=== PATIENT | female | born 1985 | race Caucasian/White ===

== ENCOUNTER 2017-02-06 08:22 | Day surgery (SDC) | payer BC ==
[2017-02-05 08:40] VITALS: BMI 32.9
--- NOTE | 2017-02-06 06:28 | HP ---
DATE OF ADMISSION: Chief complaint is perforation of the left ear. HISTORY OF PRESENT ILLNESS: This patient is a 31-year-old female who was recently seen in my office complaining of having decreased hearing in her left ear. She has previously undergone insertion of a 5 mm Kartush patch last year. At that time she was seen in the office the left ear was draining and therefore the patient was placed on antibiotic eardrops for a period of approximately 2 weeks. Upon returning it was noted that the Kartush patch had extruded and there was once again a central perforation in the left tympanic membrane. It was recommended the patient undergo a reinsertion of a larger Kartush patch to the left tympanic membrane perforation. Past medical history reveals the patient has no known allergies to medications. Her only current medication is Paxil. Previous surgeries include insertion of a left Kartush patch to a left tympanic membrane perforation, tympanoplasty x2 by Dr. Francois and Dr. Adrian, correction of a right club foot, cholecystectomy, appendectomy, mastoidectomy, insertion of a ventilation tube in the right ear x2, pyeloplasty. Review of systems is completely unremarkable. PHYSICAL EXAMINATION: This patient is a pleasant 31-year-old female who is alert and cooperative. HEENT EXAMINATION: Patient is normocephalic. Tympanic membrane of the right ear is unremarkable. Examination of left ear reveals that the left tympanic membrane has a central perforation encompassing approximately 10% of the left tympanic membrane. The middle ear space is dry and free of any cholesteatoma or infection. Pupils equal, round, reactive light and accommodation. Extraocular movements are within normal limits. Intranasal examination reveals moderate septal deviation with compensatory hypertrophy of the inferior turbinates and a moderate amount of mucus on the mucous membranes and draining down the posterior pharynx. Examination of the oropharynx, cranial nerves 2 through 12 and the remainder of the head and neck exam are all within normal limits. CHEST/CARDIOVASCULAR: Both lung muhammad are clear to percussion and auscultation. The patient is in regular sinus rhythm. S1 and S2 are present without evidence of any murmurs, S3s or S4s. Peripheral pulses are about bilaterally symmetrical. ABDOMEN: There is no evidence of any masses, megaly or tenderness. The abdomen is soft. Skin is unremarkable. Musculoskeletal and neurological are within normal limits. PELVIC AND RECTAL EXAM: The pelvic rectal exam is deferred at this time because the patient has this done on a regular basis at her family physician's office. The remainder of physical exam is unremarkable. IMPRESSION: Perforation of the left tympanic membrane. PLAN: The patient is scheduled to undergo an insertion of a 7 mm Kartush patch to a perforation of the left tympanic membrane under IV sedation with MAC or general anesthesia depending upon the anesthesia department's preference. ATTENTION RNS IN THE PRESURGICAL AREA: I have not ordered any presurgical medications or presurgical prophylactic antibiotics for this patient. If any presurgical prophylactic antibiotics are sent to the presurgical area for this patient they should be returned to the pharmacy department and the patient's account should be credited appropriately. I have explained the operation/procedure to the patient, including the risks, benefits, side effects, alternative therapies (including not receiving the proposed treatment or service), the likelihood of the patient achieving his/her goals, and potential recuperation problems for the procedure/sedation/analgesia, as well as any blood products, if indicated. I also explained to the patient the risks, benefits, and side effects of the alternatives, as well as the risks related to not receiving the proposed procedure, care treatment or services.
[~2017-02-06 08:22] MED LIST: DEXAMETHASONE SOD PHOSPHATE 10 MG/ML 1 ML VIAL IV ONE; HYDROmorphone 1 MG/ML 1 ML SYRINGE IVP PRN; MIDAZOLAM 2 MG/2 ML VIAL IV PRN; NALOXONE 0.4 MG/ML 1 ML VIAL IV PRN; ONDANSETRON 4 MG/2 ML VIAL IVP ONE; Pre Op ABX Message 1 EACH MISC MISCELLANE ONE; SCOPOLAMINE 1.5MG/72HR PATCH TRANSDERM ONE
[2017-02-06] MEDS: LACTATED RINGERS 1,000 ML IV SCH ×2 (08:46→10:19)
[2017-02-06] MEDS ORDERED: LIDOCAINE 1% 20 ML VIAL (10MG/ML) FOR IV START INTRADERMA ONE (08:46)
[2017-02-06] MEDS ORDERED: ACETAMINOPHEN IV (For NPO) 1,000 MG in EMPTY BAG 1 BAG IVPB ONE (09:45)
[2017-02-06] MEDS ORDERED: PENICILLIN G POTASSIUM 2,000,000 UNIT in DEXTROSE 5% IN WATER 100 ML IVPB ONE ×2 (09:45)
[2017-02-06] MEDS ORDERED: PROPOFOL 10 MG/ML 20 ML VIAL IV ONE (10:19)
[2017-02-06] MEDS ORDERED: fentaNYL (PF) 50 MCG/ML 2 ML AMP ONE (10:19)
[2017-02-06] MEDS ORDERED: LIDOCAINE 1% INJ 10MG/ML (20 ML MDV) ONE (10:19)
[2017-02-06] MEDS ORDERED: MIDAZOLAM 2 MG/2 ML VIAL ONE (10:19)
[2017-02-06] MEDS ORDERED: OFLOXACIN 0.3% OTIC DROPS 5 ML BTL LEFT EAR ONE (10:37)
[2017-02-06 10:58] VITALS: RESP 16
[2017-02-06] MEDS ORDERED: ONDANSETRON 4 MG/2 ML VIAL IVP PRN (11:15)
[2017-02-06] MEDS ORDERED: HYDROmorphone PCA 5 MG/25 ML SYRINGE IV PRN (11:15)
[2017-02-06 11:40] VITALS: BP 103/68; PULSE 73
[2017-02-06] MEDS ORDERED: .ACETAMINOPHEN IV (PEDS) 1,000 MG in EMPTY BAG 1 BAG IVPB SCH (16:00)
--- NOTE | 2017-02-08 16:02 | OP ---
DATE OF SERVICE: 02/06/2017 SURGEON: RUPINDER RAO MD PROCUREMENT REPRESENTATIVE: PREOPERATIVE DIAGNOSIS: Perforation of the left tympanic membrane. POSTOPERATIVE DIAGNOSIS: Perforation of the left tympanic membrane. OPERATION: Insertion of a 7 mm Kartush patch to a perforation of the left tympanic membrane. ANESTHESIA: IV sedation with M.A.C. ESTIMATED BLOOD LOSS: SPECIMENS REMOVED: COMPLICATIONS: None. OPERATIVE FINDINGS: OPERATIVE PROCEDURE: The patient was placed on the operating table in the supine position. After uneventful IV sedation, satisfactory sedation was obtained. Next, the patient's left ear was draped in the usual and customary fashion. Following the draping, the Ze[employer] operating microscope was brought into position over the patient's left ear and after insertion of a #3 aural speculum, the left external auditory canal was cleaned of all wax and debris. A previously extruded Kartush patch was removed, which was embedded in wax. Inspection revealed that the middle ear space is free of any infection or cholesteatoma. Therefore, it was elected to use a 7 mm Kartush patch which was grasped with a pair of alligator forceps in the usual fashion and was placed in the perforation in the usual manner without any difficulty. Care was taken to see that all edges of the flap of the Kartush patch were seated appropriately. At this point, the procedure was terminated. There were no intraoperative complications. The patient tolerated the procedure well and was returned to the recovery room in satisfactory condition.
== END 2017-02-06 12:06 | disposition home or self-care (01) ==
LOC: OR 08:22
PROVIDERS: ATTEND Otolaryngology
DX: H72.92 Unspecified perforation of tympanic membrane, left ear (principal); T85.898A Other specified complication of other internal prosthetic devices, implants and grafts, initial encounter; F39 Unspecified mood [affective] disorder; Z79.899 Other long term (current) drug therapy; Z91.040 Latex allergy status
CPT/HCPCS: 81025; 69610; J2250; J1100; J2405; J2001; J3010; J0131; J2704

== ENCOUNTER 2017-03-16 20:09 | Emergency (ER) | payer BC ==
[2017-03-16 20:17] VITALS: RESP 18
[2017-03-16] MEDS ORDERED: SODIUM CHLORIDE 0.9% 1,000 ML IV ONE (20:46)
[2017-03-16] MEDS ORDERED: ACETAMINOPHEN TAB 500 MG TAB PO STA (20:46)
--- NOTE | 2017-03-16 21:06 | ED ---
General Adult HPI - General Chief complaint: Urogenital Stated complaint: Back kidney pain Time Seen by Provider: 03/16/17 20:41 Source: patient, family, RN notes reviewed Mode of arrival: ambulatory Limitations: no limitations - History of Present Illness Initial comments: This is a 31-year-old female presents emergency Department with chief complaint of bilateral flank pain greater on the left, dysuria and fever. Patient states she does not feel well. Patient states that she had urinary tract infections when she was younger and she had a pyeloplasty when she was [id number] with stent placement. Patient states she is currently followed by Dr. Geiger 's. Patient denies any nausea vomiting diarrhea constipation. Denies any chest pain or shortness breath. Patient denies any chance . - Related Data Home Medications Medication Instructions Recorded Confirmed PARoxetine HCL [Paxil] 20 mg PO DAILY 01/05/15 03/16/17 Ibuprofen [Motrin] 800 mg PO TID PRN 03/16/17 03/16/17 Previous Rx's Medication Instructions Recorded Ciprofloxacin HCl [Cipro] 500 mg PO Q12HR #20 tablet 03/17/17 Hydrocodone/Acetaminophen [[place] 1 tab PO Q6HR PRN #15 tab 03/17/17 5-325] Allergies Allergy/AdvReac Type Severity Reaction Status Date / Time Beef Containing Products Allergy Rash/Hives Verified 03/16/17 21:37 [Beef] latex Allergy Rash/Hives Verified 03/16/17 21:37 peanut Allergy Rash/Hives Verified 03/16/17 21:37 Review of Systems ROS Statement: Those systems with pertinent positive or pertinent negative responses have been documented in the HPI. ROS Other: All systems not noted in ROS Statement are negative. Past Medical History Past Medical History: Hearing Disorder / Deafness Additional Past Medical History / Comment(s): [place] LEFT EAR, hydronephrosis History of Any Multi-Drug Resistant Organisms: None Reported Past Surgical History: Appendectomy, Cholecystectomy, Ear Surgery, Orthopedic Surgery Additional Past Surgical History / Comment(s): BILAT FOOT SX FOR CLUB FEET. NUMEROUS EAR SURGERIES FOR TUBES AND REPAIR OF HOLES IN EARDRUM. KIDNEY STENT AT AGE 16 MONTHS Past Anesthesia/Blood Transfusion Reactions: No Reported Reaction Past Psychological History: Depression Smoking Status: Never smoker Past Alcohol Use History: None Reported Past Drug Use History: None Reported - Past Family History Mother Family Medical History: No Reported History General Exam Limitations: no limitations General appearance: alert, in no apparent distress Head exam: Present: atraumatic, normocephalic, normal inspection Respiratory exam: Present: normal lung sounds bilaterally. Absent: respiratory distress, wheezes, rales, rhonchi, stridor Cardiovascular Exam: Present: regular rate, normal rhythm, normal heart sounds. Absent: systolic murmur, diastolic murmur, rubs, gallop, clicks GI/Abdominal exam: Present: soft, tenderness ([id number] suprapubic tenderness), normal bowel sounds. Absent: distended, guarding, rebound, rigid Back exam: Present: CVA tenderness (R) (Minimal), CVA tenderness (L) Neurological exam: Present: alert, oriented X3, CN II-XII intact Skin exam: Present: warm, dry, intact, normal color. Absent: rash Course Vital Signs 03/16/17 03/16/17 03/16/17 20:13 22:33 23:21 Temperature 100 F H 99.1 F Pulse Rate 75 78 76 Respiratory 18 18 18 Rate Blood Pressure 136/79 116/71 110/60 O2 Sat by Pulse 98 97 97 Oximetry Medical Decision Making - Medical Decision Making 31-year-old female presents emergency Department with chief complaint of dysuria or flank pain. Patient has a minimally elevated white count. Patient was given pain medication does feel better after this. Patient was given IV dose of Rocephin and will be discharged on ciprofloxacin. Patient will follow- up with primary care physician tomorrow return parameters were discussed.patient evaluated by Dr Marcelo - Lab Data Result diagrams: 03/16/17 21:13 03/16/17 21:13 Lab Results 03/16/17 03/16/17 03/16/17 Range/Units 21:13 21:13 21:13 WBC 13.0 H (3.8-10.6) k/uL RBC 4.93 (3.80-5.40) m/uL Hgb 14.8 (11.4-16.0) gm/dL Hct 44.2 (34.0-46.0) % MCV 89.7 (80.0-100.0) fL MCH 30.0 (25.0-35.0) pg MCHC 33.4 (31.0-37.0) g/dL RDW 13.2 (11.5-15.5) % Plt Count 263 (150-450) k/uL Neutrophils % 78 % Lymphocytes % 14 % Monocytes % 5 % Eosinophils % 1 % Basophils % 1 % Neutrophils # 10.2 H (1.3-7.7) k/uL Lymphocytes # 1.8 (1.0-4.8) k/uL Monocytes # 0.7 (0-1.0) k/uL Eosinophils # 0.2 (0-0.7) k/uL Basophils # 0.1 (0-0.2) k/uL Sodium 141 (137-145) mmol/L Potassium 4.1 (3.5-5.1) mmol/L Chloride 107 (98-107) mmol/L Carbon Dioxide 25 (22-30) mmol/L Anion Gap 9 mmol/L BUN 13 (7-17) mg/dL Creatinine 0.89 (0.52-1.04) mg/dL Est GFR (MDRD) Af Amer >60 (>60 ml/min/1.73 sqM) Est GFR (MDRD) Non-Af >60 (>60 ml/min/1.73 sqM) Glucose 103 H (74-99) mg/dL Plasma Lactic Acid Charles (0.7-2.0) mmol/L Calcium 9.8 (8.4-10.2) mg/dL Total Bilirubin 0.5 (0.2-1.3) mg/dL AST 22 (14-36) U/L ALT 23 (9-52) U/L Alkaline Phosphatase 64 (38-126) U/L Total Protein 7.2 (6.3-8.2) g/dL Albumin 4.2 (3.5-5.0) g/dL Lipase 100 (23-300) U/L Urine Color Urine Appearance (Clear) Urine pH (5.0-8.0) Ur Specific [place] (1.001-1.035) Urine Protein (Negative) Urine Glucose (UA) (Negative) Urine Ketones (Negative) Urine Blood (Negative) Urine Nitrite (Negative) Urine Bilirubin (Negative) Urine Urobilinogen (<2.0) mg/dL Ur Leukocyte Esterase (Negative) Urine RBC (0-5) /hpf Urine WBC (0-5) /hpf Ur Squamous Epith Cells (0-4) /hpf Urine Bacteria (None) /hpf Urine HCG, Qual Not Detected (Not Detectd) 03/16/17 03/16/17 Range/Units 21:13 21:13 WBC (3.8-10.6) k/uL RBC (3.80-5.40) m/uL Hgb (11.4-16.0) gm/dL Hct (34.0-46.0) % MCV (80.0-100.0) fL MCH (25.0-35.0) pg MCHC (31.0-37.0) g/dL RDW (11.5-15.5) % Plt Count (150-450) k/uL Neutrophils % % Lymphocytes % % Monocytes % % Eosinophils % % Basophils % % Neutrophils # (1.3-7.7) k/uL Lymphocytes # (1.0-4.8) k/uL Monocytes # (0-1.0) k/uL Eosinophils # (0-0.7) k/uL Basophils # (0-0.2) k/uL Sodium (137-145) mmol/L Potassium (3.5-5.1) mmol/L Chloride (98-107) mmol/L Carbon Dioxide (22-30) mmol/L Anion Gap mmol/L BUN (7-17) mg/dL Creatinine (0.52-1.04) mg/dL Est GFR (MDRD) Af Amer (>60 ml/min/1.73 sqM) Est GFR (MDRD) Non-Af (>60 ml/min/1.73 sqM) Glucose (74-99) mg/dL Plasma Lactic Acid Charles 1.0 (0.7-2.0) mmol/L Calcium (8.4-10.2) mg/dL Total Bilirubin (0.2-1.3) mg/dL AST (14-36) U/L ALT (9-52) U/L Alkaline Phosphatase (38-126) U/L Total Protein (6.3-8.2) g/dL Albumin (3.5-5.0) g/dL Lipase (23-300) U/L Urine Color Light Yellow Urine Appearance Cloudy H (Clear) Urine pH 6.0 (5.0-8.0) Ur Specific [place] 1.009 (1.001-1.035) Urine Protein 1+ H (Negative) Urine Glucose (UA) Negative (Negative) Urine Ketones Negative (Negative) Urine Blood Moderate H (Negative) Urine Nitrite Positive H (Negative) Urine Bilirubin Negative (Negative) Urine Urobilinogen <2.0 (<2.0) mg/dL Ur Leukocyte Esterase Large H (Negative) Urine RBC 40 H (0-5) /hpf Urine WBC 108 H (0-5) /hpf Ur Squamous Epith Cells 2 (0-4) /hpf Urine Bacteria Occasional H (None) /hpf Urine HCG, Qual (Not Detectd) Disposition Clinical Impression: Urinary tract infection Disposition: HOME SELF-CARE Condition: Stable Instructions: Urinary Tract Infection in Women (ED) Additional Instructions: Please return to the Emergency Department if symptoms worsen or any other concerns. Prescriptions: Ciprofloxacin HCl [Cipro] 500 mg PO Q12HR #20 tablet Hydrocodone/Acetaminophen [[place] 5-325] 1 tab PO Q6HR PRN #15 tab PRN Reason: Pain Referrals: Davon Sullivan Jr, [Primary Care Provider] - 1-2 days Time of Disposition: 00:11
[2017-03-16 21:32] LABS: ALT 23 U/L (9-52); AST 22 U/L (14-36); Alkaline Phosphatase 64 U/L (38-126); Anion Gap 9 mmol/L; Blood Urea Nitrogen 13 mg/dL (7-17); Calcium 9.8 mg/dL (8.4-10.2); Carbon Dioxide 25 mmol/L (22-30); Chloride 107 mmol/L (98-107); Glucose 103 mg/dL (74-99); Non-African American GFR(MDRD) >60 (>60 ml/min/1.73 sqM); Potassium 4.1 mmol/L (3.5-5.1); Sodium 141 mmol/L (137-145); Total Bilirubin 0.5 mg/dL (0.2-1.3); Total Protein 7.2 g/dL (6.3-8.2)
[2017-03-16 21:34] LABS: Basophils # (A) 0.1 k/uL (0-0.2); Basophils % (A) 1 %; CH 30.4; Eosinophils # (A) 0.2 k/uL (0-0.7); Eosinophils % (A) 1 %; HCT 44.2 % (34.0-46.0); HDW 2.33; HGB 14.8 gm/dL (11.4-16.0); Luc # (Auto) 0.17; Luc % (Auto) 1; Lymphocytes # (A) 1.8 k/uL (1.0-4.8); Lymphocytes % (A) 14 %; MCHC 33.4 g/dL (31.0-37.0); MCV 89.7 fL (80.0-100.0); Mean Platelet Volume 7.2; Monocytes # (A) 0.7 k/uL (0-1.0); Monocytes % (A) 5 %; Neutrophils # (A) 10.2 k/uL (1.3-7.7); Neutrophils % (A) 78 %; RBC 4.93 m/uL (3.80-5.40); RDW 13.2 % (11.5-15.5); WBC (Perox) 12.17
[2017-03-16 21:38] LABS: Appearance,Urine Cloudy (Clear); Bacteria,Urine Occasional /hpf; Bilirubin,Urine Negative (Negative); Glucose,Urine (UA) Negative (Negative); Ketones,Urine Negative (Negative); Leukocyte Esterase,Urine Large (Negative); Nitrite,Urine Positive (Negative); Particle Count 56633; Protein,Urine 1+ (Negative); RBC,Urine 40 /hpf (0-5); Specific Gravity,Urine 1.009 (1.001-1.035); Squamous Epithelial Cell,Urine 2 /hpf (0-4); UA Billing (MACRO vs. MICRO) MICRO; Urobilinogen,Urine <2.0 mg/dL (<2.0); WBC,Urine 108 /hpf (0-5)
[2017-03-16] MEDS ORDERED: ONDANSETRON 4 MG/2 ML VIAL IVP STA (21:55)
[2017-03-16] MEDS ORDERED: MORPHINE SULFATE 4 MG/ML SYRINGE IVP STA (21:55)
[2017-03-16] MEDS ORDERED: HYDROmorphone 1 MG/ML 1 ML SYRINGE IVP STA (23:13)
[2017-03-17] MEDS ORDERED: ACET/COD 300 MG/30 MG STARTER PACK 6 TAB BTL PO STA (00:09)
[2017-03-17 00:30] VITALS: BP 129/79; PULSE 80; TEMP 97
== END 2017-03-17 00:30 | disposition home or self-care (01) ==
LOC: EC 20:09
DX: N39.0 Urinary tract infection, site not specified (principal); F32.9 Major depressive disorder, single episode, unspecified; Z79.899 Other long term (current) drug therapy; Z91.018 Allergy to other foods; Z91.040 Latex allergy status; Z91.010 Allergy to peanuts; Z90.49 Acquired absence of other specified parts of digestive tract; Z98.890 Other specified postprocedural states
CPT/HCPCS: 36415; 80053; 83605; 83690; 85025; 81001; 81025; 87040; 87086; 99283; 96365; 96366; 96375 ×3; 96361; J2270; J2405; J0696; J1170; 87077; 87186

== ENCOUNTER 2018-04-16 21:31 | Emergency (ER) | payer BC ==
[2018-04-16 21:39] VITALS: BP 137/84; PULSE 85; RESP 16; TEMP 98.4
--- NOTE | 2018-04-16 22:35 | ED ---
ENT HPI - General Chief complaint: ENT Stated complaint: Ear pain Time Seen by Provider: 04/16/18 21:52 Source: patient Mode of arrival: ambulatory Limitations: no limitations - History of Present Illness Initial comments: This is a 32-year-old female with extensive history of ear infections and chronic perforation with effusion presents today for acute left ear pain and discharge on chronic 3 days. Patient states that she has always had chronic bilateral ear pain and has had multiple ear surgeries including myringotomy tubes bilaterally and multiple patches of a chronic left ear effusion. She last seen her ears nose and throat doctor Yaniv February 2017. The was more recently seen by Dr. Sullivan her primary care provider in December 2017 for a double ear infection, she was prescribed Augmentin for 10 days and completed a course of antibiotics. She received another course of Augmentin at the end of December due to recurring symptoms however she lost it. Last week she found her Augmentin prescription from the end of December and began taking it again, she has been on Augmentin for the past week. Starting Thursday patient began experiencing ear pain that increased when clenching her jaw. She also noticed green discharge from her left ear. She states that she chronically experiences green discharge from left ear this was darker in color and more copious. The pain continued to increase and tonight she described her left ear pain as unbearable, she took 2 extra strength Tylenol PM which he stated helped a lot, she then presented to the emergency department. Vital signs stable upon arrival. Patient denies change in baseline hearing, pain behind the ear, fever , chills, or history of DM. Patient denies any recent fever, chills, shortness of breath, chest pain, back pain, abdominal pain, nausea or vomiting, numbness or tingling, dysuria or hematuria, constipation or diarrhea, headaches or visual changes, or any other complaints. - Related Data Home Medications Medication Instructions Recorded Confirmed PARoxetine HCL [Paxil] 20 mg PO DAILY 01/05/15 03/16/17 Ibuprofen [Motrin] 800 mg PO TID PRN 03/16/17 03/16/17 Previous Rx's Medication Instructions Recorded Ciprofloxacin HCl [Cipro] 500 mg PO Q12HR #20 tablet 03/17/17 Hydrocodone/Acetaminophen [[place] 1 tab PO Q6HR PRN #15 tab 03/17/17 5-325] Ibuprofen 800 mg PO Q6H 7 Days #28 tablet 04/16/18 Levofloxacin [Levaquin] 750 mg PO DAILY 7 Days #7 tab 04/16/18 Ofloxacin 0.3% Otic Soln [Floxin 5 drops BOTH EARS BID 7 Days #1 04/16/18 0.3% Otic Soln] bottle Allergies Allergy/AdvReac Type Severity Reaction Status Date / Time Beef Containing Products Allergy Rash/Hives Verified 04/16/18 21:37 [Beef] latex Allergy Rash/Hives Verified 04/16/18 21:37 peanut Allergy Rash/Hives Verified 04/16/18 21:37 Review of Systems ROS Statement: Those systems with pertinent positive or pertinent negative responses have been documented in the HPI. ROS Other: All systems not noted in ROS Statement are negative. Constitutional: Denies: fever, chills, night sweats ENT: Denies: dental pain Respiratory: Denies: dyspnea Cardiovascular: Denies: chest pain Gastrointestinal: Denies: abdominal pain Past Medical History Past Medical History: Hearing Disorder / Deafness Additional Past Medical History / Comment(s): [place] LEFT EAR, hydronephrosis History of Any Multi-Drug Resistant Organisms: None Reported Past Surgical History: Appendectomy, Cholecystectomy, Ear Surgery, Orthopedic Surgery Additional Past Surgical History / Comment(s): BILAT FOOT SX FOR CLUB FEET. NUMEROUS EAR SURGERIES FOR TUBES AND REPAIR OF HOLES IN EARDRUM. KIDNEY STENT AT AGE 16 MONTHS Past Anesthesia/Blood Transfusion Reactions: No Reported Reaction Past Psychological History: Depression Smoking Status: Never smoker Past Alcohol Use History: None Reported Past Drug Use History: None Reported - Past Family History Mother Family Medical History: No Reported History General Exam - General Exam Comments Initial Comments: General: The patient is awake and alert, in no distress, and does not appear acutely ill. Eye: Pupils are equal, round and reactive to light, extra-ocular movements are intact. No nystagmus. There is normal conjunctiva bilaterally. No signs of icterus. Ears, nose, mouth and throat: There are moist mucous membranes and no oral lesions. On examination of the external ear there was obvious erythema and mild swelling. There there was pain to palpation of the tragus, pulling the auricle of the left ear. There was no tendernes to palpation of the Mastoid bone. Upon examination of the external ear canal there was also erythema, edema and purulent yellow-green discharge. The TM membrane was not visualized secondary to discharge and edema. Greater hearing deficit to finger rub in left ear than right- pt has baseline hearing deficits. Neck: The neck is supple, there is no tenderness or JVD. Cardiovascular: There is a regular rate and rhythm. No murmur, rub or gallop is appreciated. Respiratory: Lungs are clear to auscultation, respirations are non-labored, breath sounds are equal. No wheezes, stridor, rales, or rhonchi. Gastrointestinal: [Soft, non-distended, non-tender abdomen without masses or organomegaly noted. There is no rebound or guarding present. No CVA tenderness. Bowel sounds are unremarkable.] Musculoskeletal: Normal ROM, no tenderness. Strength 5/5. Sensation intact. Pulses equal bilaterally 2+. Neurological: A&O x 3. CN II-XII intact, There are no obvious motor or sensory deficits. Coordination appears grossly intact. Speech is normal. Skin: Skin is warm and dry and no rashes or lesions are noted. Psychiatric: Cooperative, appropriate mood & affect, normal judgment. Limitations: no limitations Eye exam: Present: PERRL, EOMI Course Vital Signs 04/16/18 21:37 Temperature 98.4 F Pulse Rate 85 Respiratory 16 Rate Blood Pressure 137/84 O2 Sat by Pulse 99 Oximetry Medical Decision Making - Medical Decision Making This is a 32-year-old female with extensive history of ear infections and chronic perforation with effusion presents today for acute left ear pain and discharge on chronic 3 days. Patient states that she has always had chronic bilateral ear pain and has had multiple ear surgeries including myringotomy tubes bilaterally and multiple patches of a chronic left ear effusion. She last seen her ears nose and throat doctor Yaniv February 2017. The was more recently seen by Dr. Sullivan her primary care provider in December 2017 for a double ear infection, she was prescribed Augmentin for 10 days and completed a course of antibiotics. She received another course of Augmentin at the end of December due to recurring symptoms however she lost it. Last week she found her Augmentin prescription from the end of December and began taking it again, she has been on Augmentin for the past week. Starting Thursday patient began experiencing ear pain that increased when clenching her jaw. She also noticed green discharge from her left ear. She states that she chronically experiences green discharge from left ear this was darker in color and more copious. The pain continued to increase and tonight she described her left ear pain as unbearable, she took 2 extra strength Tylenol PM which he stated helped a lot, she then presented to the emergency department. Vital signs stable upon arrival. Patient denies change in baseline hearing, pain behind the ear, fever , chills, or history of DM. Upon physical examination of the external ear there was obvious erythema and mild swelling. There there was pain to palpation of the tragus, pulling the auricle of the left ear. There was no tendernes to palpation of the Mastoid bone. Upon examination of the external ear canal there was also erythema, edema and purulent yellow-green discharge. The TM membrane was not visualized secondary to discharge and edema. Greater hearing deficit to finger rub in left ear than right- pt has baseline hearing deficits. Dr. Geronimo had a face to face with patient and planned was discussed together. Due to patients recent abx use of Augmentin and physical exam findings we felt Levoquin PO 750 mg once daily and ofloacin otic drops for 7 days were appropriate treatment at this time, along with ENT folllow-up within the next two day with Dr. Berg the patients ENT physician. Pt was discharged in stable condition and told to return to the emergency department if symptoms worsen. Disposition Clinical Impression: Chronic otitis media of left ear, Otitis externa of left ear Disposition: HOME SELF-CARE Condition: Good Instructions: Otitis Externa (ED), Otitis Media (ED) Additional Instructions: Please use medication as discussed. Please follow-up with your ENT in the next 2 days.. Please return to emergency room if the symptoms increase or worsen or for any other concerns. Prescriptions: Ibuprofen 800 mg PO Q6H 7 Days #28 tablet Levofloxacin [Levaquin] 750 mg PO DAILY 7 Days #7 tab Ofloxacin 0.3% Otic Soln [Floxin 0.3% Otic Soln] 5 drops BOTH EARS BID 7 Days # 1 bottle Is patient prescribed a controlled substance at d/c from ED?: No Referrals: Arthur Hood MD [Primary Care Provider] - 1-2 days Time of Disposition: 22:57
== END 2018-04-16 23:06 | disposition home or self-care (01) ==
LOC: EC 21:31 → SUPCPDRO 21:31 → EC 23:06
DX: H60.92 Unspecified otitis externa, left ear (principal); H66.92 Otitis media, unspecified, left ear; G89.29 Other chronic pain; H92.01 Otalgia, right ear; H91.92 Unspecified hearing loss, left ear; F32.9 Major depressive disorder, single episode, unspecified; Z79.899 Other long term (current) drug therapy; Z91.010 Allergy to peanuts; Z91.018 Allergy to other foods; Z91.040 Latex allergy status; Z96.22 Myringotomy tube(s) status; Z98.890 Other specified postprocedural states
CPT/HCPCS: 99282

== ENCOUNTER 2018-07-01 05:11 | Emergency (ER) | payer BC ==
[2018-07-01 05:17] VITALS: BP 116/68; PULSE 82; RESP 17; TEMP 98
[2018-07-01 05:40] LABS: Appearance,Urine Turbid (Clear); Bacteria,Urine Rare /hpf; Bilirubin,Urine Negative (Negative); Blood,Urine Large (Negative); Color,Urine Yellow; Glucose,Urine (UA) Negative (Negative); Ketones,Urine Negative (Negative); Leukocyte Esterase,Urine Large (Negative); Mucus,Urine Few /hpf; Nitrite,Urine Positive (Negative); Protein,Urine 3+ (Negative); RBC,Urine >182 /hpf (0-5); Specific Gravity,Urine 1.015 (1.001-1.035); Squamous Epithelial Cell,Urine 7 /hpf (0-4); Urobilinogen,Urine <2.0 mg/dL (<2.0); WBC,Urine >182 /hpf (0-5)
[2018-07-01] MEDS ORDERED: LEVOFLOXACIN 750 MG TAB PO STA (05:43)
--- NOTE | 2018-07-01 05:45 | ED ---
Female Urogenital HPI - General Chief complaint: Urogenital Stated complaint: kidney pain Time Seen by Provider: 07/01/18 05:19 Source: patient Mode of arrival: ambulatory Limitations: no limitations - History of Present Illness Initial comments: 's patient is a 32-year-old woman who presents to be evaluated because she believes she has developed urinary tract infection. Patient states that she has had 2-3 days of dysuria and frequency. Over the course of the morning she has developed some low back pain. She states the symptoms are identical to symptoms she had with previous urinary tract infection. She has not noted fever or chills. No chest pain, palpitations, or dyspnea. MD Complaint: dysuria, pelvic pain -: days(s) Location: suprapubic Radiation: non-radiating Severity: moderate Quality: cramping, dull Consistency: constant Improves with: none Worsens with: urination Last Menstrual Period: 06/11/18 Patient : No Associated Symptoms: denies other symptoms - Related Data Home Medications Medication Instructions Recorded Confirmed PARoxetine HCL [Paxil] 20 mg PO DAILY 01/05/15 03/16/17 Ibuprofen [Motrin] 800 mg PO TID PRN 03/16/17 03/16/17 Previous Rx's Medication Instructions Recorded Ciprofloxacin HCl [Cipro] 500 mg PO Q12HR #20 tablet 03/17/17 Hydrocodone/Acetaminophen [[place] 1 tab PO Q6HR PRN #15 tab 03/17/17 5-325] Ibuprofen 800 mg PO Q6H 7 Days #28 tablet 04/16/18 Levofloxacin [Levaquin] 750 mg PO DAILY 7 Days #7 tab 04/16/18 Ofloxacin 0.3% Otic Soln [Floxin 5 drops BOTH EARS BID 7 Days #1 04/16/18 0.3% Otic Soln] bottle Ciprofloxacin HCl [Cipro] 500 mg PO Q12HR #14 tablet 07/01/18 Phenazopyridine [Pyridium] 100 mg PO TID #6 tablet 07/01/18 Allergies Allergy/AdvReac Type Severity Reaction Status Date / Time Beef Containing Products Allergy Rash/Hives Verified 07/01/18 05:17 [Beef] latex Allergy Rash/Hives Verified 07/01/18 05:17 peanut Allergy Rash/Hives Verified 07/01/18 05:17 Review of Systems ROS Statement: Those systems with pertinent positive or pertinent negative responses have been documented in the HPI. ROS Other: All systems not noted in ROS Statement are negative. Constitutional: Denies: fever, chills, weakness Respiratory: Denies: cough, dyspnea Cardiovascular: Denies: chest pain, palpitations, edema Gastrointestinal: Reports: abdominal pain. Denies: nausea, vomiting, diarrhea Genitourinary: Reports: dysuria, frequency. Denies: hematuria, discharge, abnormal menses Skin: Denies: rash Neurological: Denies: headache, weakness Past Medical History Past Medical History: Hearing Disorder / Deafness Additional Past Medical History / Comment(s): [place] LEFT EAR, hydronephrosis History of Any Multi-Drug Resistant Organisms: None Reported Past Surgical History: Appendectomy, Cholecystectomy, Ear Surgery, Orthopedic Surgery Additional Past Surgical History / Comment(s): BILAT FOOT SX FOR CLUB FEET. NUMEROUS EAR SURGERIES FOR TUBES AND REPAIR OF HOLES IN EARDRUM. KIDNEY STENT AT AGE 15 MONTHS Past Anesthesia/Blood Transfusion Reactions: No Reported Reaction Past Psychological History: Depression Smoking Status: Never smoker Past Alcohol Use History: None Reported Past Drug Use History: None Reported - Past Family History Mother Family Medical History: No Reported History General Exam Limitations: no limitations General appearance: alert, in no apparent distress Head exam: Present: atraumatic, normocephalic Eye exam: Present: normal appearance. Absent: scleral icterus, conjunctival injection ENT exam: Present: normal oropharynx Neck exam: Present: normal inspection Respiratory exam: Present: normal lung sounds bilaterally. Absent: respiratory distress, wheezes, rales, rhonchi, stridor Cardiovascular Exam: Present: regular rate, normal rhythm, normal heart sounds. Absent: systolic murmur, diastolic murmur, rubs, gallop GI/Abdominal exam: Present: soft. Absent: distended, tenderness, guarding, rebound, rigid, mass, pulsatile mass Extremities exam: Present: normal inspection, normal capillary refill. Absent: pedal edema, calf tenderness Back exam: Present: normal inspection. Absent: CVA tenderness (R), CVA tenderness (L) Neurological exam: Present: alert Skin exam: Present: warm, dry, intact, normal color. Absent: rash Course Vital Signs 07/01/18 05:14 Temperature 98.0 F Pulse Rate 82 Respiratory 17 Rate Blood Pressure 116/68 O2 Sat by Pulse 98 Oximetry Medical Decision Making - Lab Data Lab Results 07/01/18 07/01/18 Range/Units 05:25 05:25 Urine Color Yellow Urine Appearance Turbid H (Clear) Urine pH 6.0 (5.0-8.0) Ur Specific [place] 1.015 (1.001-1.035) Urine Protein 3+ H (Negative) Urine Glucose (UA) Negative (Negative) Urine Ketones Negative (Negative) Urine Blood Large H (Negative) Urine Nitrite Positive H (Negative) Urine Bilirubin Negative (Negative) Urine Urobilinogen <2.0 (<2.0) mg/dL Ur Leukocyte Esterase Large H (Negative) Urine RBC >182 H (0-5) /hpf Urine WBC >182 H (0-5) /hpf Ur Squamous Epith Cells 7 H (0-4) /hpf Urine Bacteria Rare H (None) /hpf Urine Mucus Few H (None) /hpf Urine HCG, Qual Not Detected (Not Detectd) Disposition Clinical Impression: Urinary tract infection Disposition: HOME SELF-CARE Condition: Good Instructions: Urinary Tract Infection in Women (ED) Prescriptions: Ciprofloxacin HCl [Cipro] 500 mg PO Q12HR #14 tablet Phenazopyridine [Pyridium] 100 mg PO TID #6 tablet Is patient prescribed a controlled substance at d/c from ED?: No Referrals: Arthur Hood MD [Primary Care Provider] - 1-2 days
== END 2018-07-01 05:55 | disposition home or self-care (01) ==
LOC: EC 05:11
DX: N39.0 Urinary tract infection, site not specified (principal); F32.9 Major depressive disorder, single episode, unspecified; H91.92 Unspecified hearing loss, left ear; Z91.010 Allergy to peanuts; Z91.018 Allergy to other foods; Z91.040 Latex allergy status; Z79.899 Other long term (current) drug therapy; Z90.49 Acquired absence of other specified parts of digestive tract; Z96.0 Presence of urogenital implants
CPT/HCPCS: 81001; 81025; 99284

== ENCOUNTER → 2019-06-11 | Outpatient (CLI) | payer BC ==
--- NOTE | 2019-06-11 17:59 | MR ---
EXAMINATION TYPE: MR pelvis wo con DATE OF EXAM: 06/11/2019 COMPARISON: None HISTORY: Abn immunological findings Pain Standard multiplanar, multisequence MRI departmental protocol Multiplanar, multisequence images of the pelvis were acquired. FINDINGS: Uterus is anteverted. Uterus has normal size and contour. There is 1 cm cyst on the anterio r wall of the vagina. Urinary bladder distends smoothly. There is no evidence of a bladder mass. Ther e is no free fluid in the pelvis. There are follicular cysts on both ovaries. There is no evidence of a pelvic mass. There is no inguinal hernia. Bony pelvis appears intact. There is 5 mm anterior sublu xation of L5 in relation to S1. There is probably L5 spondylolysis. There are a few prominent vessels in the pelvis bilaterally. Sacroiliac joints appear intact. IMPRESSION: There are mild pelvic varices. No adnexal mass. Normal uterus. L5 minimal spondylolisthesis and probable L5 spondylolysis.
== END | disposition home or self-care (01) ==
LOC: RADMRIMAIN 12:02
PROVIDERS: ATTEND Internal Medicine Rheumatology
DX: I86.2 Pelvic varices (principal)
CPT/HCPCS: 72195

== ENCOUNTER → 2019-06-21 | Outpatient (CLI) | payer BC ==
--- NOTE | 2019-06-21 09:14 | CT ---
EXAMINATION TYPE: CT ankle LT wo con DATE OF EXAM: 06/21/2019 COMPARISON: None HISTORY: 33-year-old female Left ankle pain. TECHNIQUE: Contiguous axial scanning of the left ankle without IV contrast. Coronal and sagittal racquel nstructions performed. CT DLP: 179.4 mGycm Automated exposure control for dose reduction was used. FINDINGS: Pronounced soft tissue and low density thickening along the anterior and anteromedial aspect of the a nkle joint. Punctate 2 mm loose body in the region of the sinus Tarsi. Some scattered degenerative sp urring such as along the facets of the subtalar joint. Irregularity and surrounding fat stranding along the Achilles tendon. This somewhat narrowed caliber along the middle third portion. There is an appearance of a forefoot varus. Thickening and heterogeneity of the peroneus brevis. No acute fracture seen. Some eccentric widening along the posterior aspect of the distal tibiofibular overlap. IMPRESSION: 1. PRONOUNCED SOFT TISSUE THICKENING ALONG THE ANTERIOR AND ANTEROMEDIAL ASPECT OF THE ANKLE JOINT CO ULD REFLECT A SYNOVITIS OR EXTENSIVE SCARRING FROM PRIOR CAPSULAR OR ANTERIOR DELTOID LIGAMENT INJURI ES. 2. SOME UNDERLYING OSTEOARTHROSIS ALONG THE FACETS OF THE SUBTALAR JOINT WITH A PUNCTATE 2 MM LOOSE B MEG. 3. QUERY UNDERLYING FOREFOOT VARUS DEFORMITY. CLINICALLY CORRELATE. 4. MARKED PERONEUS BREVIS TENDINOSIS AND PROBABLY SOME INTRASUBSTANCE TEAR. 5. IRREGULARITY WITH SURROUNDING FAT STRANDING OF THE ACHILLES TENDON. NO FOCAL RETRACTED STUMP IS ID ENTIFIED. HOWEVER, THE MIDDLE THIRD SEGMENT NARROWS SLIGHTLY IN CALIBER. UNDERLYING AGE INDETERMINATE PARTIAL TEAR WITH EITHER SURROUNDING INFLAMMATION OR CHRONIC SCARRING ARE CONSIDERED. FURTHER CLINIC AL CORRELATION RECOMMENDED. 6. ECCENTRIC WIDENING OF THE POSTERIOR ASPECT OF THE DISTAL TIBIOFIBULAR OVERLAP COULD REFLECT PRIOR INJURY TO THE SYNDESMOSIS.
== END | disposition home or self-care (01) ==
LOC: RADCTMAIN 07:33
PROVIDERS: ATTEND Orthopaedic Surgery
DX: M81.8 Other osteoporosis without current pathological fracture (principal); M67.874 Other specified disorders of tendon, left ankle and foot; M79.89 Other specified soft tissue disorders; M24.08 Loose body, other site; M21.542 Acquired clubfoot, left foot

== ENCOUNTER 2019-07-24 09:34 | Emergency (ER) | payer BC ==
[2019-07-24 09:50] VITALS: BP 129/86; PULSE 95; RESP 18; TEMP 99.4
[2019-07-24] MEDS ORDERED: cefTRIAXone 1,000 MG VIAL (IM USE) IM STA (09:58)
--- NOTE | 2019-07-24 10:00 | ED ---
ENT HPI - General Chief complaint: ENT Stated complaint: vomiting/congestion Time Seen by Provider: 07/24/19 09:51 Source: patient, RN notes reviewed Mode of arrival: ambulatory Limitations: no limitations - History of Present Illness Initial comments: 33-year-old female presents emergency Department chief complaint of sinus congestion, right ear pain, sore throat. Patient states symptoms started last few days. Patient states she is scheduled for foot surgery and she is concerned about this upper respiratory infection. Patient also states that she's had recurrent issues with otitis media and multiple ear surgeries. Patient reports no fevers or chills no productive cough or chest congestion or shortness of breath. - Related Data Home Medications Medication Instructions Recorded Confirmed PARoxetine HCL [Paxil] 20 mg PO DAILY 01/05/15 03/16/17 Ibuprofen [Motrin] 800 mg PO TID PRN 03/16/17 03/16/17 Previous Rx's Medication Instructions Recorded Ciprofloxacin HCl [Cipro] 500 mg PO Q12HR #20 tablet 03/17/17 Hydrocodone/Acetaminophen [[place] 1 tab PO Q6HR PRN #15 tab 03/17/17 5-325] Ibuprofen 800 mg PO Q6H 7 Days #28 tablet 04/16/18 Levofloxacin [Levaquin] 750 mg PO DAILY 7 Days #7 tab 04/16/18 Ofloxacin 0.3% Otic Soln [Floxin 5 drops BOTH EARS BID 7 Days #1 04/16/18 0.3% Otic Soln] bottle Ciprofloxacin HCl [Cipro] 500 mg PO Q12HR #14 tablet 07/01/18 Phenazopyridine [Pyridium] 100 mg PO TID #6 tablet 07/01/18 Amoxicillin/Potassium Clav 1 tab PO Q12HR #20 tab 07/24/19 [Augmentin 875-125 Tablet] Allergies Allergy/AdvReac Type Severity Reaction Status Date / Time Beef Containing Products Allergy Rash/Hives Verified 07/24/19 09:49 [Beef] latex Allergy Rash/Hives Verified 07/24/19 09:49 peanut Allergy Rash/Hives Verified 07/24/19 09:49 Review of Systems ROS Statement: Those systems with pertinent positive or pertinent negative responses have been documented in the HPI. ROS Other: All systems not noted in ROS Statement are negative. Past Medical History Past Medical History: Hearing Disorder / Deafness Additional Past Medical History / Comment(s): [place] [place] LEFT EAR, hydronephrosis History of Any Multi-Drug Resistant Organisms: None Reported Past Surgical History: Appendectomy, Cholecystectomy, Ear Surgery, Orthopedic Surgery Additional Past Surgical History / Comment(s): BILAT FOOT SX FOR CLUB FEET. NUMEROUS EAR SURGERIES FOR TUBES AND REPAIR OF HOLES IN EARDRUM. KIDNEY STENT AT AGE 15 MONTHS Past Anesthesia/Blood Transfusion Reactions: No Reported Reaction Past Psychological History: Depression Smoking Status: Never smoker Past Alcohol Use History: None Reported Past Drug Use History: None Reported - Past Family History Mother Family Medical History: No Reported History General Exam Limitations: no limitations General appearance: alert, in no apparent distress Head exam: Present: atraumatic, normocephalic, normal inspection Eye exam: Present: normal appearance, PERRL, EOMI. Absent: scleral icterus, conjunctival injection, periorbital swelling ENT exam: Present: mucous membranes moist. Absent: normal oropharynx (Erythema, posterior pharynx, swelling noted), TM's normal bilaterally (Multiple areas of scarring bilaterally, erythema noted to the right) Neck exam: Present: normal inspection, full ROM. Absent: tenderness, meningismus, lymphadenopathy Respiratory exam: Present: normal lung sounds bilaterally. Absent: respiratory distress, wheezes, rales, rhonchi, stridor Cardiovascular Exam: Present: regular rate, normal rhythm, normal heart sounds. Absent: systolic murmur, diastolic murmur, rubs, gallop, clicks Neurological exam: Present: alert Skin exam: Present: warm, dry, intact, normal color. Absent: rash Course Vital Signs 07/24/19 09:46 Temperature 99.4 F Pulse Rate 95 Respiratory 18 Rate Blood Pressure 129/86 O2 Sat by Pulse 99 Oximetry Medical Decision Making - Medical Decision Making Patient has otitis media with acute sinusitis and acute pharyngitis. Patient was started on Augmentin. Patient discharged in stable condition. Patient advised to have recheck in 24-48 hours. Return parameters were discussed. Disposition Clinical Impression: Sore throat, Otitis media, Sinusitis Disposition: HOME SELF-CARE Condition: Stable Instructions (If sedation given, give patient instructions): Sinusitis (ED) Additional Instructions: Please return to the Emergency Department if symptoms worsen or any other concerns. Prescriptions: Amoxicillin/Potassium Clav [Augmentin 875-125 Tablet] 1 tab PO Q12HR #20 tab Is patient prescribed a controlled substance at d/c from ED?: No Referrals: Arthur Hood MD [Primary Care Provider] - 1-2 days Time of Disposition: 10:00
== END 2019-07-24 10:15 | disposition home or self-care (01) ==
LOC: EC 09:34
DX: H66.91 Otitis media, unspecified, right ear (principal); J32.9 Chronic sinusitis, unspecified; J02.9 Acute pharyngitis, unspecified; F32.9 Major depressive disorder, single episode, unspecified; Z79.899 Other long term (current) drug therapy; Z91.018 Allergy to other foods; Z91.010 Allergy to peanuts; Z91.040 Latex allergy status
CPT/HCPCS: 99283; 96372; J0696

== ENCOUNTER 2019-07-28 08:41 | Inpatient (IN) | payer BC ==
[2019-07-26 11:58] VITALS: BMI 32.0
[~2019-07-28 08:41] MED LIST changes: +HYDROmorphone 0.5 MG/0.5 ML SYRINGE IVP PRN; -HYDROmorphone 1 MG/ML 1 ML SYRINGE IVP PRN; -MIDAZOLAM 2 MG/2 ML VIAL IV PRN; -NALOXONE 0.4 MG/ML 1 ML VIAL IV PRN; -Pre Op ABX Message 1 EACH MISC MISCELLANE ONE; -SCOPOLAMINE 1.5MG/72HR PATCH TRANSDERM ONE
[2019-07-28] MEDS ORDERED: LIDOCAINE 1% 20 ML VIAL (10MG/ML) FOR IV START INTRADERMA ONE (09:20)
[2019-07-28] MEDS: LACTATED RINGERS 1,000 ML IV SCH ×4 (09:26→23:12)
[2019-07-28] MEDS ORDERED: MIDAZOLAM PF (FBP) 2 MG/2 ML VIAL IV ONE (10:27)
[2019-07-28] MEDS ORDERED: fentaNYL (PF) 50 MCG/ML 2 ML AMP IV ONE (10:27)
[2019-07-28] MEDS ORDERED: LIDOCAINE 1% INJ 10MG/ML (20 ML MDV) ONE (11:26)
[2019-07-28] MEDS ORDERED: ROPIVACAINE 5 MG/ML 30 ML VIAL ONE (11:26)
[2019-07-28] MEDS ORDERED: HYDROmorphone (PF) 1 MG/ML ONE (11:26)
[2019-07-28] MEDS ORDERED: MIDAZOLAM 2 MG/2 ML VIAL ONE (11:26)
[2019-07-28] MEDS ORDERED: fentaNYL (PF) 50 MCG/ML 2 ML AMP ONE (11:26)
[2019-07-28] MEDS ORDERED: PROPOFOL 10 MG/ML 20 ML VIAL IV ONE (11:26)
--- NOTE | 2019-07-28 12:13 | P.ANPRN ---
Procedure Note - Anesthesia - Nerve Block Performed Left Saphenous/Obturator Single Time Out Performed: Yes Date of Procedure: 07/28/19 Procedure Start Time: : Procedure Stop Time: :32 Location of Patient Procedure: PreOp Indication: Acute Post-Operative Pain, Requested by Surgeon Specifically requested for management of pain by DrCatie: Edu Wade Sedation Type: Sedate with meaningful contact maintained Preparation: Sterile Prep Position: Supine Catheter: None Needle Types: Pajunk Needle Gauge: 20 Ultrasound used to visualize needle placement: Yes Ultrasound used to observe medication spread: Yes Injectate: Other (see comment) (0.25% ropivacaine/0.5% lidocaine 20 mL) Adjunct: Epinephrine (see comment for dilution ratio) (1:200,000) Blood Aspirated: No Pain Paresthesia on Injection Noted: No Resistance on Injection: Normal Image Stored and Saved: Yes Events: Uneventful and Well Tolerated
--- NOTE | 2019-07-28 12:16 | P.ANPRN ---
Procedure Note - Anesthesia - Nerve Block Performed Left Popliteal Single Time Out Performed: Yes Date of Procedure: 07/28/19 Procedure Start Time: 10:32 Procedure Stop Time: 10:41 Location of Patient Procedure: PreOp Indication: Acute Post-Operative Pain, Requested by Surgeon Specifically requested for management of pain by DrCatie: Edu Wade Sedation Type: Sedate with meaningful contact maintained Preparation: Sterile Prep Position: Right Lateral Catheter: None Needle Types: Pajunk Needle Gauge: 21 Ultrasound used to visualize needle placement: Yes Ultrasound used to observe medication spread: Yes Injectate: Other (see comment) (0.25% ropivacaine/0.5% lidocaine 20 mL) Adjunct: Epinephrine (see comment for dilution ratio) (1:200,000) Blood Aspirated: No Pain Paresthesia on Injection Noted: No Resistance on Injection: Normal Image Stored and Saved: Yes Events: Uneventful and Well Tolerated
[2019-07-28] MEDS ORDERED: LACTATED RINGERS 1,000 ML IV ONE (14:04)
[2019-07-28] MEDS ORDERED: HYDROmorphone 0.5 MG/0.5 ML SYRINGE IVP PRN (14:21)
[2019-07-28] MEDS ORDERED: ONDANSETRON 4 MG/2 ML VIAL IVP PRN (14:21)
[2019-07-28] MEDS ORDERED: SENNOSIDES-DOCUSATE SODIUM 1 EACH TAB PO PRN (14:21)
[2019-07-28] MEDS ORDERED: HYDROmorphone 1 MG/ML 1 ML SYRINGE IVP PRN (14:21)
[2019-07-28] MEDS ORDERED: NALOXONE 0.4 MG/ML 1 ML VIAL IV PRN (14:25)
--- NOTE | 2019-07-28 14:26 | P.OP ---
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 Left talonavicular joint fusion 2. Left peroneus longus to peroneus brevis tendon transfer 3. Left open plantar fascia release 4. Left percutaneous tendo Achilles lengthening 5. Application of short leg splint by physician, left ankle Anesthesia: DEBBYA, regional Surgeon: Edu Wade [employer] Sealer #1: Jasmyne Davis Estimated Blood Loss (ml): 10 IV fluids (ml): 1,200 Pathology: none sent Condition: stable Disposition: PACU Indications for Procedure: The patient is very pleasant otherwise healthy 33-year-old female who is had a long-standing history of problems with both of her feet. As an infant she had clubfeet and underwent Ponseti casting. She ultimately required several surgeries on the left foot. Her right foot has done relatively well her whole adult life. We've been treating her left foot for the last several years. She has had an attempt with custom orthotics, shoe modifications, and an Marina brace all with diminishing relief. The patient requested surgery in an attempt to achieve a more plantigrade foot. Clinically she had significant midfoot cavus and tenderness along the lateral border of her foot. She had multiple healed surgical incisions. Her x-rays showed midfoot cavus with the deformity seeming to come from a subluxed talonavicular joint. I had a long discussion with the patient on treatment options including continued nonsurgical treatment versus surgery. The patient requested surgery. The patient had realistic e xpectations with surgery and understands the difficulty in correcting deformity from residual clubfoot. My recommendation was to perform a combination of joint fusions, soft tissue releases, and possible osteotomies. The patient understands that surgery is generally stepwise progression until a plantigrade foot is achieved. She had a computed tomography scan for preoperative planning. We discussed potential risks and Occasions of surgery including but not limited to risk of anesthesia, superficial infection, deep infection, delayed wound healing, nonunion, malunion, overcorrection, under correction, recurrence, symptomatically hardware, damage to local blood vessels or nerves, DVT, PE, other medical complications, generalized to satisfaction with her surgical outcome, need for further surgery, and possibly loss of life or limb area the patient acknowledges that will these are the most common complications other less common complications are possible. She also has realistic expectations on the outcome of her surgery. She understands the goals to have a more plantigrade foot but her foot will never likely be completely normal. She provided her verbal and written consent to go forward with surgery. Description of Procedure: The patient was identified in preoperative holding. I had a long discussion with the patient and her mom discussing the surgical plan. The correct left leg was marked with my initials. We reviewed the consent and all their questions were answered. A block was given by anesthesia. The patient was then brought back to the operating room. She was positioned on the OR table where anesthesia administered a general anesthetic and preoperative antibiotics. A tourniquet was applied to the proximal aspect of the left leg. All bony prominences were well-padded. A bump was placed on the left buttock internally rotating the leg to neutral. A ramp was placed on the left leg to elevate and facilitate imaging. The right leg was secured to the table with foam and tape. The Silfverskiold test was performed and the patient was found to have a global tendo Achilles contracture. The left leg was then prepped and draped in the standard sterile fashion. A timeout was performed identifying the correct patient, operative extremity, and procedure. The patient's leg was then elevated, exsanguinated with an Esmarch bandage, and the tourniquet was inflated to 250 mmHg. I began by performing a percutaneous Bradford triple hemisection, percutaneous tendo Achilles lengthening. 3 stab incisions were made at 2 cm increments starting at the posterior tuberosity of the heel and continuing proximally. The medial 50% of the Achilles tendon fibers were released and the most proximal and distal stab incisions in the lateral 50% of the Achilles tendon was released to the middle incision. A gentle dorsiflexion force was applied and there was a palpable and audible pop as the Achilles lengthening. The Achilles tendon was s till intact. Attention was then turned to the lateral border of the ankle. A 3 cm incision was made in the retro-fibular region at the lateral malleolus. The peroneal tendon sheath was opened. The peroneus longus was identified. The tendon was verified to be the peroneus longus by plantar flexing and dorsiflexing the first metatarsal. The tendon was released distally in the wound. It was then transferred to the peroneus brevis using a Pulvertaft weave. It was secured with 0 Vicryl sutures. The wound was thoroughly irrigated and closed in layers with 2-0 Vicryl for the tendon sheath, 3-0 Monocryl in the deep subcu, and geraldine for the skin. Attention was then turned to the plantar aspect of the foot. The plantar fascia appeared to be taut and was released. A longitudinal incision was made at the plantar medial aspect of the heel. Skin incision was made with a supple and dissection was carried down carefully to the subcu tennis tissue with tenotomy scissors. The plantar fascia was identified and deep right angle retractors were placed isolating the plantar fascia. The entire plantar fascia including both the medial, central, and lateral bands were sharply released. The wound was thoroughly irrigated and closed in layers with 3-0 Monocryl in the deep subcu and geraldine for the skin. Attention was then turned to the talonavicular joint. A straight dorsal incision was marked out. Skin incision was made with a scalpel. Dissection was carried down carefully through the subcutaneous tissue. The patient's anatomy was markedly distorted both from her severe deformity and from prior surgery. The dorsal aspect of the talonavicular joint was sharply opened. The navicular was found to be both dorsally and medially subluxed. The talar head was subluxed laterally. The dorsal navicular had a large hook which prevented reduction. This was taken down with a Rongeur. An extensive soft tissue was performed medially and laterally to free up the talonavicular joint. K wires were placed in the navicular and talar neck medially to allow gentle distraction of the joint. This was allowed to set for several minutes to allow relaxation of the soft tissues. The joint was then gently distracted and all the articular cartilage from the talar head and navicular removed with a series of curettes and osteotomes. The wound was thoroughly irrigated. A 2.0 mm drill bit was used to fenestrate the exposed subchondral bone of the talar head and navicular. Augment was mixed to facilitate fusion. At this point I attempted to manually reduce the talonavicular joint. It was extremely difficult to completely reduce the joint but I was able to reduce the dorsiflexion of the navicular on the talus and some of the medial subluxation. Once the joint was held in a r elatively well reduced position it was held with K wires both medially and laterally. On inspection clinically the majority of the talar head appeared to be covered by the navicular. The cavus appeared to be significantly improved. Fluoroscopy was brought in and showed reduction of the talonavicular joint on the lateral view but mild subluxation on the AP view with persistent lateral displacement of the talar head. Since the foot clinically appeared to be significantly improved I accepted this. A partially threaded, cannulated 5.5 mm screw was placed medially and a cannulated partially threaded 4.5 screw was placed laterally, both generating excellent compression. At this point I reevaluated the foot. The heel appeared to be in varus so I elected to not perform a lateralizing calcaneal osteotomy. On simulated weightbearing lateral x-ray Meary's line appeared to be significantly improved and the foot appeared plantigrade clinically so elected to not perform a dorsiflexion closing wedge osteotomy of the first metatarsal. The dorsal wound was then gently irrigated to not wash away any of the augment mixture. The remaining augment and bone slurry was mixed around the fusion site. The dorsal capsule of the talonavicular joint was closed with interrupted 0 Vicryl. The deep subcu was reapproximated using 3-0 Monocryl. The skin was closed using geraldine. All instrument, sponge, and sharp counts were correct. Sterile dressing was applied followed by a well-padded bulky Townsend splint with the ankle in neutral. The patient was then awoken from her anesthetic, transferred to a gurney, and brought to the recovery room having, the procedure well. Jasmyne Davis PA-C was required a skilled public services assistant patient positioning, surgical exposure, retraction, application of hardware, closure of wound, and placement of splint. Plan: The patient is going to be admitted overnight for IV antibiotics and pain control. She can discharge home when her pain is controlled and she passes physical therapy.
--- NOTE | 2019-07-28 14:27 | FL ---
EXAMINATION TYPE: FL guidance operating room, XR foot limited LT DATE OF EXAM: 07/28/2019 CLINICAL HISTORY: Left foot pain. TECHNIQUE: Fluoroscopy. Limited 2 intraoperative views left foot. COMPARISON: Left ankle CT June 21, 2019. FINDINGS: Fluoroscopic guidance was provided during Achilles tendon lengthening procedure performed by Dr. Wade. A total of 2 minutes 6 seconds of fluoroscopic time was utilized during the procedu re and 5 spot images was acquired. Images acquired show placement of screws through the talonavicular joint space. IMPRESSION: As Above.
[2019-07-28 16:01] LABS: Basophils % (A) 0 %; Eosinophils % (A) 0 %; HCT 38.2 % (34.0-46.0); HGB 12.3 gm/dL (11.4-16.0); Lymphocytes # (A) 0.7 k/uL (1.0-4.8); Lymphocytes % (A) 6 %; MCH 28.7 pg (25.0-35.0); MCHC 32.2 g/dL (31.0-37.0); MCV 89.1 fL (80.0-100.0); Mean Platelet Volume 6.2; Monocytes # (A) 0.1 k/uL (0-1.0); Monocytes % (A) 1 %; Neutrophils # (A) 10.4 k/uL (1.3-7.7); Neutrophils % (A) 92 %; Platelet Count 347 k/uL (150-450); RBC 4.28 m/uL (3.80-5.40); RDW 12.8 % (11.5-15.5); WBC 11.3 k/uL (3.8-10.6)
[2019-07-28] MEDS: hydrOXYzine PAMOATE 25 MG CAP PO PRN (16:43)
[2019-07-28] MEDS: HYDROcodone/APAP 5-325MG 1 EACH TAB PO PRN ×2 (16:45→23:09)
[2019-07-29] MEDS: HYDROmorphone 0.5 MG/0.5 ML SYRINGE IVP PRN ×2 (02:17→21:09)
[2019-07-29] MEDS: hydrOXYzine PAMOATE 25 MG CAP PO PRN ×2 (07:04→16:53)
[2019-07-29] MEDS: HYDROcodone/APAP 5-325MG 1 EACH TAB PO PRN ×2 (07:05→16:54)
[2019-07-29] MEDS: ENOXAPARIN 40 MG/0.4 ML SYRINGE SQ SCH (08:33)
--- NOTE | 2019-07-29 08:46 | P.PN ---
Subjective Progress Note Date: 07/29/19 This patient is an otherwise healthy 33-year-old female who has had long- standing problems with her bilateral feet. She had club feet as an . She presented to Dr. Wade requested surgery in attempt to achieve a more plantigrade foot. Patient presented to [facility] on 07/28/19 for elect salena surgery. Patient underwent a left talonavicular joint fusion, peroneus longus to brevis tendon transfer, plantar fascial release, and percutaneous tendo Achilles lengthening on 07/28/[address] Wade. Today's postoperative day #1. The patient states she experiencing significant pain in her left foot, although not currently because she recently received IV Dilaudid. She states she was up to the bathroom last night, and she has been using a walker for ambulation. She states she has been remaining strictly nonweightbearing on the operative foot. She has been tolerating food well. Sam iraheta denies chest pain, shortness breath, nausea, vomiting, fevers, chills. She denies any new complaints today. Vital signs stable. Objective - Vital Signs Vital signs: Vital Signs Temp 98.5 F 07/29/19 07:00 Pulse 75 07/29/19 07:00 Resp 17 07/29/19 07:00 BP 93/61 07/29/19 07:00 Pulse Ox 96 07/29/19 07:00 Intake & Output 07/28/19 07/29/19 07/29/19 18:59 06:59 18:59 Intake Total 800 Output Total 420 Balance 380 Weight 77.111 kg Intake: IV 800 Output: Urine 400 Estimated Blood Loss 20 Other: # Voids 3 - Exam On examination, the patient is lying in bed in no acute distress. The patient is alert and oriented 3. On inspection of the left lower extremity, there is a bulky Townsend splint in place. The splint is clean, dry, and intact. The left toes are warm and well perfused, with capillary refill less than 2 seconds. The patient is able to wiggle her left toes without difficulty. Sensation is intact to light touch of the left lower extremity. Neurovascular is intact of the left lower extremity. The right calf is soft and nontender. - Labs CBC & Chem 7: 07/28/19 15:27 Labs: Abnormal Lab Results - Last 24 Hours (Table) 07/28/19 07/28/19 Range/Units 15:27 15:27 WBC 11.3 H (3.8-10.6) k/uL Neutrophils # 10.4 H (1.3-7.7) k/uL Lymphocytes # 0.7 L (1.0-4.8) k/uL Vitamin D 25-Hydroxy 23.0 L (30.0-100.0) ng/mL Assessment and Plan Assessment: Left cavovarus foot deformity status-post left talonavicular joint fusion, peroneus longus to brevis tendon transfer, plantar fascial release, percutaneous tendo Achilles lengthening on 07/28/[address] Wade. Postoperative day #1. Plan: - Strict nonweightbearing of the left lower extremity. Ice and elevate the left lower extremity to decrease pain and swelling. - Physical therapy for gait and balance training. - Continue pain management. Decrease use of IV Dilaudid as tolerated. - Lovenox while she is inpatient for anticoagulation. - 2 doses of postoperative antibiotics complete. - Anticipate discharge home within the next 24-48 hours. Patient will follow- up in the office with Dr. Wade in 2 weeks following discharge. Patient discussed with Dr. Wade.
[2019-07-29] MEDS: LACTATED RINGERS 1,000 ML IV SCH ×3 (11:05→22:39)
[2019-07-30] MEDS: HYDROcodone/APAP 5-325MG 1 EACH TAB PO PRN ×2 (01:34→07:42)
[2019-07-30] MEDS: LACTATED RINGERS 1,000 ML IV SCH ×2 (05:49→08:59)
[2019-07-30] MEDS: ENOXAPARIN 40 MG/0.4 ML SYRINGE SQ SCH (07:43)
[2019-07-30] MEDS: HYDROmorphone 0.5 MG/0.5 ML SYRINGE IVP PRN (07:44)
[2019-07-30] MEDS ORDERED: HYDROcodone/APAP 7.5-325MG 1 EACH TAB PO PRN ×2 (07:48)
--- NOTE | 2019-07-30 07:56 | P.PN ---
Subjective Progress Note Date: 07/30/19 This is a 33-year-old female who is status post left talonavicular joint fusion, peroneus longus to brevis tendon transfer, plantar fascial release, and percutaneous tendo Achilles tendon lengthening. This is postoperative day #2. Patient states that her pain was well controlled overnight, but this morning her pain is 10/10. Patient states that the [place] does help to relieve her pain, but wears off quickly. Patient denies any fever/chills, numbness, weakness, tingling, abdominal pain, shortness of breath or chest pain. Objective - Vital Signs Vital signs: Vital Signs Temp 98.6 F 07/30/19 01:55 Pulse 82 07/30/19 01:55 Resp 17 07/29/19 15:00 BP 115/75 07/30/19 01:55 Pulse Ox 95 07/30/19 01:55 Intake & Output 07/29/19 07/30/19 07/30/19 18:59 06:59 18:59 Intake Total 444 490 Output Total 600 Balance -156 490 Intake: Oral 444 490 Output: Urine 600 Other: Voiding Method Bedside Commode # Voids 0 1 - Exam On exam splint is clean, dry and intact. Sensation is intact to the toes of left foot. Capillary refill is normal at less than 2 seconds. The left lower extremity is warm and well perfused. Neurovascular status and circulatory status are intact. - Labs CBC & Chem 7: 07/28/19 15:27 Assessment and Plan Assessment: Status post left talonavicular joint fusion, peroneus longus to brevis tendon tr ansfer, plantar fascial release, and percutaneous tendo Achilles tendon lengthening. (1) Acquired cavovarus deformity of left foot Current Visit: Yes Status: Acute Code(s): M21.6X2 - OTHER ACQUIRED DEFORMIT IES OF LEFT FOOT SNOMED Code(s): 6208843889535935 Plan: 1. Strictly nonweightbearing to the left lower extremity. 2. Keep splint clean, dry and intact. 3. We will increase to [place] 7.5/325 mg. 4. Rest and elevate the left lower extremity. 5. Plan to discharge patient home later today if pain is better controlled.
[2019-07-30 08:27] VITALS: RESP 16
[2019-07-30 16:32] VITALS: BP 111/75; PULSE 81; TEMP 98
--- NOTE | 2019-07-30 16:42 | P.DS ---
Providers Date of admission: 07/29/19 16:38 Expected date of discharge: 07/30/19 Attending physician: Edu Wade Primary care physician: Stated None - Discharge Diagnosis(es) (1) Acquired cavovarus deformity of left foot Current Visit: Yes Status: Acute Hospital Course: This is a 33-year-old female with known history of left cavovarus foot deformity and history of surgically corrected clubfoot. The patient presents for evaluation. After discussion and consideration patient elects to proceed with left talonavicular joint fusion, peroneus longus to peroneus brevis tendon transfer, plantar fascia release and percutaneous tendo Achilles lengthening. The patient is seen preoperatively by Dr. Wade. Patient is admitted to [facility] on 07/28/2019 for left talonavicular joint fusion, peroneus longus to peroneus brevis tendon transfer, plantar fascia release and percutaneous tendo Achilles lengthening.. The procedures performed without complication or sequelae. The patient is doing well postoperatively. Labs and vital signs are stable on day of discharge. On day of discharge patient's splint is clean, dry and intact. There is no drainage noted at this time. Sensation is intact. Capillary refill is normal at less than 2 seconds. Neurovascular status to the left lower extremity is intact. Patient is discharged home in good condition. Opioid start talking form is reviewed and signed at patient bedside. Please see med rec for accurate list of home medications. Plan - Discharge Summary Discharge Rx Participant: Yes New Discharge Prescriptions: New Aspirin 325 mg PO DAILY #14 tab Docusate [Colace] 100 mg PO BID #60 capsule HYDROcodone/APAP 7.5-325MG [[place] 7.5-325] 1 - 2 tab PO Q6H PRN #56 tab PRN Reason: Pain No Action PARoxetine HCL [Paxil] 20 mg PO DAILY Ibuprofen [Motrin] 800 mg PO TID PRN PRN Reason: Pain Amoxicillin 875 mg PO Q12HR Acetaminophen [Tylenol Extra Strength] 1,000 mg PO Q6H PRN PRN Reason: Pain Discharge Medication List PARoxetine HCL [Paxil] 20 mg PO DAILY 01/05/15 [History] Ibuprofen [Motrin] 800 mg PO TID PRN 03/16/17 [History] Acetaminophen [Tylenol Extra Strength] 1,000 mg PO Q6H PRN 07/26/19 [History] Amoxicillin 875 mg PO Q12HR 07/26/19 [History] Aspirin 325 mg PO DAILY #14 tab 07/29/19 [Rx] Docusate [Colace] 100 mg PO BID #60 capsule 07/29/19 [Rx] HYDROcodone/APAP 7.5-325MG [[place] 7.5-325] 1 - 2 tab PO Q6H PRN #56 tab 07/30/19 [Rx] Follow up Appointment(s)/Referral(s): Edu Wade MD [Medical Doctor] - 08/12/19 9:00 am Activity/Diet/Wound Care/Special Instructions: -Strict non-weight bearing on your operative leg. Do not remove your splint; Keep splint clean, dry, and intact -Use crutches, knee scooter, or a walker to ambulate after surgery. -Elevate and ice operative leg to help reduce swelling and control pain. -Take pain medications as prescribed. Take Colace as a stool softener. Take aspirin as prescribed for blood clot prevention. -Follow-up appointment with Dr. Wade in the office in 2 weeks. -Call the office with any questions or concerns,
== END 2019-07-30 18:04 | disposition home or self-care (01) | DRG 494 ==
LOC: OR 08:41 → 4SSUR 14:13 → OR 07-29 15:34 → 4SSUR 07-29 16:38 → OBSVTOIN 07-30 15:21
PROVIDERS: ADMIT Orthopaedic Surgery; ATTEND Orthopaedic Surgery
PROC: 0SGG04Z Fusion of Left Ankle Joint with Internal Fixation Device, Open Approach (ICD-10-PCS; principal; 2019-07-30)
PROC: 0L8T0ZZ Division of Left Ankle Tendon, Open Approach (ICD-10-PCS; principal; 2019-07-30)
PROC: 0LXT0ZZ Transfer Left Ankle Tendon, Open Approach (ICD-10-PCS; principal; 2019-07-30)
PROC: 0KNW0ZZ Release Left Foot Muscle, Open Approach (ICD-10-PCS; principal; 2019-07-30)
PROC: 0SGG07Z Fusion of Left Ankle Joint with Autologous Tissue Substitute, Open Approach (ICD-10-PCS; principal; 2019-07-30)
DX: M21.6X2 Other acquired deformities of left foot (principal); M67.02 Short Achilles tendon (acquired), left ankle; Q66.89 Other specified congenital deformities of feet; Z79.899 Other long term (current) drug therapy; H40.9 Unspecified glaucoma; F32.9 Major depressive disorder, single episode, unspecified; Z90.49 Acquired absence of other specified parts of digestive tract; Z83.3 Family history of diabetes mellitus; Z82.49 Family history of ischemic heart disease and other diseases of the circulatory system
CPT/HCPCS: 64445; 64450; 76942; 82306; 85025

== ENCOUNTER 2021-03-01 08:28 | Day surgery (SDC) | payer BC, MEDICAID ==
[2021-02-25 18:24] VITALS: BMI 32.9
--- NOTE | 2021-03-01 05:02 | HP ---
HISTORY AND PHYSICAL CHIEF COMPLAINT: Fluid in both ears. HISTORY OF PRESENT ILLNESS: This patient is a pleasant 35-year-old female who was recently seen in my office initially for a chronically draining left ear. The patient had previously undergone insertion of a Kartush patch to the left ear in 2016. Recently, the patch came out and since that time she had problems with intermittent drainage in the left ear. She has a history of external otitis and is on medication for that. At the time that she was seen in my office, clinical examination of the left ear revealed there was some purulent material in the canal. This was removed with a cotton tip applicator. In addition to this, the left tympanic membrane showed that the previous perforation had healed, but there was a healing granulation tissue in the area of the previous perforation. This type of granulation tissue is notorious for causing intermittent drainage. The patient was placed on a course of Ciprodex otic drops 4 drops in left ear t.i.d. for approximately 2 weeks. Upon returning, the drainage had stopped and inspection of the ear revealed that the granulation tissue was still present. In addition to this, the patient was complaining of having a plugged sensation in both ears. No evidence of perforation was seen in either ear. However, there was fluid behind both ears. The patient was tried on a course of Decadron tablets for 10 days. Upon her return visit, clinical examination revealed no significant improvement and therefore was recommended that she undergo a bilateral myringotomy with insertion of ventilation tubes. PAST MEDICAL HISTORY: Past medical history reveals that she has no known allergies. MEDICATIONS: Her current medications include Prozac and vitamin D. REVIEW OF SYSTEMS: Review of systems is completely noncontributory. PHYSICAL EXAMINATION: Patient is a pleasant 35-year-old female who was alert and cooperative. HEENT examination: Patient is normocephalic. Both tympanic membranes appear to be dull. The left tympanic membrane is dull and retracted, and there is granulation tissue on the tympanic membrane centrally. There is no evidence of actual perforation. Pupils are equal, round, reactive to light and accommodation. Extraocular movements within normal limits. Intranasal examination reveals moderate septal deviation with compensatory hypertrophy of inferior turbinates and a moderate amount of mucus on the mucous membrane draining down the posterior pharynx. Examination of oropharynx, cranial nerves 2 through 12 and remainder of the head and neck exam are within normal limits. CHEST/CARDIOVASCULAR: Both lung muhammad are clear to percussion and auscultation. Patient is in regular sinus rhythm S1, S2 are present. No murmurs S3s or S4s. Peripheral pulses are bilaterally symmetrical. ABDOMEN: There is no evidence OF any masses, megaly or tenderness. The abdomen is soft. MUSCULOSKELETAL and NEUROLOGICAL all within normal limits. PELVIC/RECTAL examination: Pelvic/ rectal exam is deferred at this time because the patient has this done on a regular basis at her family physician's office. The remainder of physical exam is essentially unremarkable. IMPRESSION: Chronic bilateral serous otitis media. PREVIOUS SURGERIES: Previous surgeries include a Kartush patch to the left tympanic membrane x2, tympanoplasty x2 by Dr. Francois, and Dr. Adrian, correction of right club foot, cholecystectomy, appendectomy, mastectomy, insertion of ventilation tubes x2 or 3 and a pyeloplasty. PLAN: The patient is scheduled undergo a bilateral myringotomy with insertion of Miguel Angel type T tubes under IV sedation in the a.m. Attention RNs in the pre-surgical area, I have not ordered any pre-surgical prophylactic antibiotics for this patient. If the pharmacy department sends any pre- surgical prophylactic antibiotics to the pre-surgical area for this patient, please return that medication to the pharmacy department, cancel the order, and make sure that the patient's account is credited appropriately. I have discussed the risks, benefits and alternative therapies for the above-mentioned procedure and for both sedation/analgesia as well as necessary blood product administration, if indicated, as they pertain to this patient. The patient has indicated his or her understanding and acceptance of the risks and procedures discussed. MMODL / IJN: [id number] /
[~2021-03-01 08:28] MED LIST changes: -DEXAMETHASONE SOD PHOSPHATE 10 MG/ML 1 ML VIAL IV ONE; +DEXAMETHASONE SOD PHOSPHATE 4 MG/ML 1 ML VIAL IV ONE; +LACTATED RINGERS 1,000 ML IV SCH; +LIDOCAINE 1% (10MG/ML) FOR IV START INTRADERMA PRN; +MIDAZOLAM 2 MG/2 ML VIAL IV PRN; +Pre Op ABX Message 1 EACH MISC MISCELLANE ONE
[2021-03-01 09:22] VITALS: TEMP 97.4
[2021-03-01] MEDS ORDERED: KETAMINE 10 MG/ML 20 ML VIAL ONE (09:49)
[2021-03-01] MEDS ORDERED: fentaNYL (PF) 50 MCG/ML 2 ML AMP ONE (09:49)
[2021-03-01] MEDS ORDERED: PROPOFOL 10 MG/ML 20 ML VIAL IV ONE (09:49)
[2021-03-01] MEDS ORDERED: MIDAZOLAM 2 MG/2 ML VIAL ONE (09:49)
[2021-03-01] MEDS ORDERED: OFLOXACIN 0.3% OPHTH DROPS 5 ML BOTTLE BOTH EARS ONE (10:06)
--- NOTE | 2021-03-01 12:07 | OP ---
OPERATIVE REPORT DATE OF SURGERY: 03/01/2021 PREOP DIAGNOSIS: Chronic bilateral serous otitis media. POSTOP DIAGNOSIS: Chronic bilateral serous otitis media. ANESTHESIA: IV sedation with M.A.C. OPERATIVE PROCEDURE: Bilateral myringotomy with insertion of Miguel Angel T-type ventilation tubes. OPERATING SURGEON: Dr. Purvis. COMPLICATIONS: None. PROCEDURE: The patient was placed on the operating table in the supine position after uneventful induction and mask anesthesia. Satisfactory general anesthesia was obtained. Next, the operating microscope was brought into position over the patient's right ear where after insertion of a #3 aural speculum, the external auditory canal was cleansed of all wax and debris and a myringotomy knife was used to make an incision in the anterior inferior quadrant of the right tympanic membrane. Next, the middle ear space was suctioned free of all fluid and a T-type ventilation tube was inserted through the previously made myringotomy incision without any difficulty. Attention was then directed to the left ear where the same procedure was carried out using the operating microscope and #3 aural speculum. The external auditory canal was cleansed of all wax and debris and the myringotomy knife was used to make an incision in the anterior inferior quadrant of the left tympanic membrane. Once again, the middle ear space was suctioned free of all fluid and a T-type ventilation tube was inserted through the previously made myringotomy incision without any difficulty. At this point, the procedure was terminated. There were no intraoperative complications. The patient tolerated the procedure well and was returned to the Recovery Room in satisfactory condition. MMODL / IJN: [id number] /
[2021-03-01 12:09] VITALS: BP 107/69; PULSE 78; RESP 18
== END 2021-03-01 12:19 | disposition home or self-care (01) ==
LOC: OR 08:28
PROVIDERS: ATTEND Otolaryngology
DX: H65.23 Chronic serous otitis media, bilateral (principal); Z79.899 Other long term (current) drug therapy; Z91.040 Latex allergy status; F32.9 Major depressive disorder, single episode, unspecified; Z90.89 Acquired absence of other organs; Z90.49 Acquired absence of other specified parts of digestive tract; Z98.890 Other specified postprocedural states
CPT/HCPCS: 81025; 69436; J2250; J1100; J2405; J3010; J2704

== ENCOUNTER → 2021-06-13 | Outpatient (CLI) | payer MEDICAID ==
[2021-06-13 16:13] LABS: Appearance,Urine Clear (Clear); Bilirubin,Urine Negative (Negative); Blood,Urine Negative (Negative); Color,Urine Yellow; Glucose,Urine (UA) Negative (Negative); Ketones,Urine Negative (Negative); Leukocyte Esterase,Urine Negative (Negative); Nitrite,Urine Negative (Negative); Protein,Urine Negative (Negative); Specific Gravity,Urine 1.021 (1.001-1.035); Urobilinogen,Urine <2.0 mg/dL (<2.0)
[2021-06-14 01:01] LABS: Basophils # (A) 0.06 X 10*3/uL (0.00-0.10); Basophils % (A) 0.8 %; Eosinophils # (A) 0.18 X 10*3/uL (0.04-0.35); Eosinophils % (A) 2.4 %; Lymphocytes # (A) 2.58 X 10*3/uL (0.90-5.00); Lymphocytes % (A) 34.1 %; MCH 29.9 pg (27.0-32.0); MCHC 33.3 g/dL (32.0-37.0); MCV 89.8 fL (80.0-97.0); Mean Platelet Volume 10.7 fL (9.5-12.2); Monocytes # (A) 0.52 X 10*3/uL (0.20-1.00); Monocytes % (A) 6.9 %; Neutrophils # (A) 4.21 X 10*3/uL (1.80-7.70); Neutrophils % (A) 55.7 %; Platelet Count 293 X 10*3/uL (140-440); RBC 4.01 X 10*6/uL (4.10-5.20); RDW 12.3 % (11.5-14.5); WBC 7.56 X 10*3/uL (4.50-10.00)
[2021-06-14 02:27] LABS: Erythrocyte Sedimentation Rate 14 mm/Hr (0-20)
[2021-06-14 03:12] LABS: Hepatitis B Surface Antigen Non-Reactive (Non-Reactive); Hepatitis C IgG Antibody Non-Reactive (Non-Reactive)
[2021-06-14 04:06] LABS: ALT 20 U/L (8-44); AST 22 U/L (13-35); African American GFR (CKD) 111.5 (60.0-200.0); Albumin/Globulin Ratio 1.71 (1.60-3.17); Alkaline Phosphatase 71 U/L (41-126); BUN/Creat Ratio 18.75 Ratio (12.00-20.00); C Reactive Protein <0.4 mg/dL (0.0-0.8); Calcium 9.3 mg/dL (8.7-10.3); Carbon Dioxide 24.2 mmol/L (21.6-31.8); Chloride 107 mmol/L (96-109); Creatine Kinase 159 U/L (26-186); Globulin 2.4 g/dL (1.6-3.3); Glucose 105 mg/dL (70-110); Non-African American GFR(CKD) 96.2 (60.0-200.0); Potassium 3.6 mmol/L (3.5-5.5); Rheumatoid Factor, Qnt 6 IU/mL (0-15); Sodium 141 mmol/L (135-145); Total Bilirubin 0.2 mg/dL (0.3-1.2); Total Protein 6.5 g/dL (6.2-8.2); Uric Acid 5.1 mg/dL (2.9-7.7)
[2021-06-14 04:07] LABS: Protein, Total 6.5 g/dL (6.2-8.2)
[2021-06-14 06:30] LABS: Anti-DNA, DS unit <1.0 IU/mL; Anti-Smith Ab Interp NEGATIVE (NEGATIVE); Cardiolipin Ab IgG Interp NEGATIVE (NEGATIVE); Cardiolipin Ab IgM Interp NEGATIVE (NEGATIVE); Cardiolipin IgM Antibody 1.6 U/mL; Centromere Antibody <0.2 AI; Centromere Antibody Interp NEGATIVE (NEGATIVE); Cyclic Citrull Pep IgG Unit <0.5 U/mL; Cyclic Citrullinated Pep IgG NEGATIVE (NEGATIVE); DNA Double-Stranded NEGATIVE (NEGATIVE); Scleroderma SC-70 Ab <0.2 AI
[2021-06-14 09:12] LABS: Aldolase 4.5 U/L (1.2-7.6)
[2021-06-14 11:36] LABS: APTT 48 Sec(s) (<43); APTT 1:1 Mix 40 Sec(s) (<43); Dilute Russell Viper Venom 35 Sec(s) (<44)
[2021-06-14 12:02] LABS: Angiotensin-1 Converting Enz. 37 U/L (8-52)
[2021-06-14 13:28] LABS: C-ANCA <1:20 Titer (<1:20)
[2021-06-14 13:43] LABS: Histone Antibody 1.4 UNITS (<1.0)
[2021-06-14 14:06] LABS: Albumin 3.85 g/dL (3.80-4.90); Gamma Globulin 1.05 g/dL (0.70-1.50)
[2021-06-14 16:22] LABS: Free Kappa Lt Chain Qnt, Serum 1.62 mg/dL (0.33-1.94)
== END | disposition home or self-care (01) ==
LOC: LABWHC1 15:28
PROVIDERS: ATTEND Internal Medicine Rheumatology
DX: Z11.59 Encounter for screening for other viral diseases (principal); R76.8 Other specified abnormal immunological findings in serum; E55.9 Vitamin D deficiency, unspecified; E03.9 Hypothyroidism, unspecified
CPT/HCPCS: 36415; 80053; 81003; 82085; 82164; 82306; 82550; 83516; 83520; 83883; 84165; 84439; 84443; 84550; 85025; 85613; 85652; 85730; 86038; 86039; 86140; 86147; 86160; 86162; 86200; 86225; 86235; 86255; 86334; 86431; 86803; 87340

== ENCOUNTER → 2021-08-30 | Outpatient (CLI) | payer MEDICAID ==
--- NOTE | 2021-08-30 09:27 | CT ---
EXAMINATION TYPE: CT foot LT wo con DATE OF EXAM: 08/30/2021 COMPARISON: 07/28/2019 intraoperative radiographs and prior CT left ankle 06/21/2019 HISTORY: 35-year-old female T84.84XA, S92.115K. Lt foot pain TECHNIQUE: Contiguous axial scanning of the left foot without IV contrast. Coronal and sagittal recon structions performed. CT DLP: 150 mGycm Automated exposure control for dose reduction was used. FINDINGS: There is interval placement of 2 screws across the talonavicular joint with satisfactory bony ankylos is. Small loose bodies are not present at the site of previous capsular thickening along the anterior jasmine salena medial tibiotalar joint capsule just adjacent. The heads of both screws are embedded within the medial cuneiform navicular and middle cuneiform deepak cular joints and there has been interval progression to moderate to severe degenerative change across the navicular cuneiform joints with a bone on bone articulation and some areas and subchondral scler osis and cystic change. Intraosseous geode or lipoma redemonstrated within the anterior body of the calcaneus and also within the cuboid. Hammertoes. There may be some forefoot varus and accentuated arch. Redemonstrated abnormal strandy soft tissue along the course of the Achilles tendon. A tiny 3 mm dens ity within the middle third Achilles tendon is new. At least mild osteoarthritic change along the subtalar joint. IMPRESSION: 1. COMPARED TO THE PRIOR CT OF 06/21/2019, THERE HAS BEEN INTERVAL PLACEMENT OF SURGICAL ANKYLOSIS A CROSS THE TALONAVICULAR JOINT WITH SATISFACTORY EFFUSION. 2. HOWEVER, THERE HAS BEEN THE DEVELOPMENT OF SEVERE OSTEOARTHROSIS NOW AT THE NAVICULAR CUNEIFORM JANI INTS. ALSO, NOTE THAT THE SCREW HEADS ARE EMBEDDED WITHIN THE NAVICULAR CUNEIFORM JOINT SPACES. 3. MILD SUBTALAR JOINT OA IS SIMILAR. REDEMONSTRATED PROBABLE SCARRING ALONG THE ACHILLES TENDON. TIN Y 3 MM DENSITY ALONG THE MIDDLE THIRD ACHILLES TENDON IS NEW. CORRELATE TO THE INTEGRITY OF THE AC HILLES TENDON. 4. AGAIN, THERE SEEMS TO BE SOME FOREFOOT VARUS. HAMMERTOES. ACCENTUATED MIDFOOT ARCH.
== END | disposition home or self-care (01) ==
LOC: RADCTMAIN 06:51
PROVIDERS: ATTEND Podiatrist Foot & Ankle Surgery
DX: T84.84XA Pain due to internal orthopedic prosthetic devices, implants and grafts, initial encounter (principal); S92.11 Fracture of neck of talus; X58.XXXA Exposure to other specified factors, initial encounter

== ENCOUNTER → 2021-10-14 | Outpatient (CLI) | payer MEDICAID ==
--- NOTE | 2021-10-16 08:53 | P.ARTDOP ---
Arterial Doppler LOWER EXTREMITY ARTERIAL DOPPLER: DATE OF SERVICE: 10/14/2021 Reason for study: Preop assessment for left foot surgery. Doppler waveforms: Multiphasic bilaterally throughout with good toe waveforms. Pulse volume recording: []. Pressure gradients: None. Ankle-brachial indices: Greater than 1 on the right and 0.99 on the left Toe brachial indices: 0.79 on the right, 0.89 on the left Impression: Normal study.
== END | disposition home or self-care (01) ==
LOC: RADUSWWP 14:04
PROVIDERS: ATTEND Podiatrist Foot & Ankle Surgery
DX: I73.9 Peripheral vascular disease, unspecified (principal)
CPT/HCPCS: 93923

== ENCOUNTER → 2022-02-15 | Outpatient (CLI) | payer MEDICAID ==
[2022-02-15 16:35] LABS: Basophils # (A) 0.08 X 10*3/uL (0.00-0.10); Basophils % (A) 1.2 %; Eosinophils # (A) 0.31 X 10*3/uL (0.04-0.35); Eosinophils % (A) 4.5 %; HGB 12.7 g/dL (12.0-15.0); Immature Grans, Automated 0.3 %; Lymphocytes # (A) 2.16 X 10*3/uL (0.90-5.00); Lymphocytes % (A) 31.3 %; MCH 28.5 pg (27.0-32.0); MCHC 31.8 g/dL (32.0-37.0); MCV 89.7 fL (80.0-97.0); Mean Platelet Volume 9.9 fL (9.5-12.2); Monocytes # (A) 0.51 X 10*3/uL (0.20-1.00); Monocytes % (A) 7.4 %; NRBC Per 100 WBC 0 /100 WBCS (0.0-0.0); Neutrophils # (A) 3.81 X 10*3/uL (1.80-7.70); Neutrophils % (A) 55.3 %; Platelet Count 353 X 10*3/uL (140-440); RBC 4.46 X 10*6/uL (4.10-5.20); RDW 12.7 % (11.5-14.5); WBC 6.89 X 10*3/uL (4.50-10.00)
[2022-02-15 17:01] LABS: ALT 8 U/L (8-44); AST 20 U/L (13-35); Albumin 4.2 g/dL (3.8-4.9); Albumin/Globulin Ratio 1.45 (1.60-3.17); Alkaline Phosphatase 75 U/L (41-126); BUN/Creat Ratio 9.78 Ratio (12.00-20.00); Blood Urea Nitrogen 8.8 mg/dL (9.0-27.0); Calcium 9.1 mg/dL (8.7-10.3); Carbon Dioxide 25.1 mmol/L (20.0-27.5); Chloride 105 mmol/L (96-109); Chol/HDL Ratio 3.26 Ratio; Globulin 2.9 g/dL (1.6-3.3); Glucose 88 mg/dL (70-110); LDL Cholesterol,Calculated 81.2 mg/dL (0.0-131.0); Non-African American GFR(CKD) 82.8 (60.0-200.0); Potassium 4.1 mmol/L (3.5-5.5); Sodium 140 mmol/L (135-145); Total Protein 7.1 g/dL (6.2-8.2)
== END | disposition home or self-care (01) ==
LOC: LABWHC1 09:47
PROVIDERS: ATTEND Nurse Practitioner Family
DX: Z00.00 Encounter for general adult medical examination without abnormal findings (principal); E66.09 Other obesity due to excess calories; F33.0 Major depressive disorder, recurrent, mild; R79.89 Other specified abnormal findings of blood chemistry; N92.1 Excessive and frequent menstruation with irregular cycle; Z68.33 Body mass index [BMI] 33.0-33.9, adult
CPT/HCPCS: 36415; 80053; 80061; 82306; 84439; 84443; 85025

== ENCOUNTER 2022-07-10 13:04 | Emergency (ER) | payer MEDICAID ==
[2022-07-10 13:28] VITALS: TEMP 98.5
[2022-07-10] MEDS ORDERED: ONDANSETRON 4 MG/2 ML VIAL IVP STA (13:48)
[2022-07-10] MEDS ORDERED: KETOROLAC 15 MG/ML 1 ML VIAL IVP STA (13:48)
[2022-07-10] MEDS ORDERED: MORPHINE SULFATE 2 MG/ML SYRINGE IVP STA (13:48)
[2022-07-10] MEDS ORDERED: SODIUM CHLORIDE 0.9% 1,000 ML IV STA (13:48)
[2022-07-10 14:05] LABS: Appearance,Urine Turbid (Clear); Bacteria,Urine Moderate /hpf; Bilirubin,Urine Negative (Negative); Blood,Urine Moderate (Negative); Budding Yeast,Urine Many /hpf; Color,Urine Yellow; Glucose,Urine (UA) Negative (Negative); Ketones,Urine Negative (Negative); Leukocyte Esterase,Urine Large (Negative); Mucus,Urine Occasional /hpf; Nitrite,Urine Positive (Negative); Protein,Urine 2+ (Negative); RBC,Urine 81 /hpf (0-5); Specific Gravity,Urine 1.018 (1.001-1.035); Squamous Epithelial Cell,Urine 11 /hpf (0-4); Urobilinogen,Urine <2.0 mg/dL (<2.0); WBC,Urine >182 /hpf (0-5)
[2022-07-10 14:21] LABS: Basophils # (A) 0.1 k/uL (0-0.2); Basophils % (A) 0 %; Eosinophils # (A) 0.1 k/uL (0-0.7); Eosinophils % (A) 1 %; HCT 40.7 % (34.0-46.0); HGB 12.9 gm/dL (11.4-16.0); Lymphocytes # (A) 1.3 k/uL (1.0-4.8); Lymphocytes % (A) 8 %; MCH 27.7 pg (25.0-35.0); MCHC 31.8 g/dL (31.0-37.0); MCV 87.2 fL (80.0-100.0); Mean Platelet Volume 7.3; Monocytes # (A) 0.8 k/uL (0-1.0); Monocytes % (A) 5 %; Neutrophils # (A) 13.4 k/uL (1.3-7.7); Neutrophils % (A) 85 %; Platelet Count 304 k/uL (150-450); RBC 4.67 m/uL (3.80-5.40); RDW 13.5 % (11.5-15.5); WBC 15.7 k/uL (3.8-10.6)
[2022-07-10 14:42] LABS: Albumin 4.4 g/dL (3.5-5.0); Calcium 9.2 mg/dL (8.4-10.2); Potassium 3.9 mmol/L (3.5-5.1); Total Bilirubin 0.7 mg/dL (0.2-1.3); Total Protein 7.3 g/dL (6.3-8.2)
[2022-07-10] MEDS ORDERED: cefTRIAXone IN SWFI 1,000 MG/10 ML SYRINGE IVP STA (14:47)
--- NOTE | 2022-07-10 15:02 | ED ---
Female Urogenital HPI - General Chief complaint: Urogenital Stated complaint: UTI Time Seen by Provider: 07/10/22 13:31 Source: patient, RN notes reviewed Mode of arrival: ambulatory Limitations: no limitations - History of Present Illness Initial comments: This is a 36-year-old female who presents to the emergency department for burning with urination and right flank pain. States that she's had burning with urination for approximately one week. Last night, she started to develop pain in the right lower quadrant radiating to the right flank. She does have a history of UTIs, but states that they never get this bad. Denies any history of kidney stones. She did see Dr. Geiger, urology, 10-15 years ago after she required surgical removal of a portion of the left ureter. She has not seen urology since then. She has felt nauseous but has not thrown up. Denies any fevers or chills. Denies any fevers, chills, sore throat, cough, dyspnea, chest pain, palpitations, vomiting, diarrhea, or headaches. MD Complaint: dysuria Onset/Timin -: week(s) - Related Data Home Medications Medication Instructions Recorded Confirmed PARoxetine HCL [Paxil] 20 mg PO DAILY 01/05/15 03/01/21 Ibuprofen [Motrin] 800 mg PO TID PRN 03/16/17 03/01/21 Acetaminophen [Tylenol Extra 1,300 mg PO Q8H PRN 07/26/19 03/01/21 Strength] Ergocalciferol [Vitamin D2 (1250 1,250 mcg PO DONALD 02/25/21 03/01/21 Mcg = 71964 Iu)] Previous Rx's Medication Instructions Recorded Cefpodoxime Proxetil [Vantin] 200 mg PO Q12HR 10 Days #20 tab 07/10/22 HYDROcodone/APAP 5-325MG [[place] 1 tab PO Q6HR PRN 3 Days #12 tab 07/10/22 5-325] Ibuprofen 800 mg PO Q8H PRN #30 tab 07/10/22 Ondansetron Odt [Zofran Odt] 4 mg PO Q8HR PRN #20 tab 07/10/22 Allergies Allergy/AdvReac Type Severity Reaction Status Date / Time Beef Containing Products Allergy Rash/Hives Verified 09/22/22 13:28 [Beef] latex Allergy Rash/Hives Verified 07/10/22 13:28 peanut Allergy Rash/Hives Verified 07/10/22 13:28 Review of Systems ROS Statement: Those systems with pertinent positive or pertinent negative responses have been documented in the HPI. ROS Other: All systems not noted in ROS Statement are negative. 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 Born w/ bilat clubfoot, last surg 2019 lt foot w/ ongoing pain. Hx hydronephrosis, had surg. Hx scleritis bilat eyes. History of Any Multi-Drug Resistant Organisms: None Reported Past Surgical History: Appendectomy, Cholecystectomy, Ear Surgery, Orthopedic Surgery Additional Past Surgical History / Comment(s): BILAT FOOT SX FOR CLUB FEET, mu lt, last on lt foot 2019. NUMEROUS bilat EAR SURGERIES FOR TUBES AND REPAIR OF HOLES IN EARDRUM. KIDNEY STENT AT AGE 16 MONTHS Past Anesthesia/Blood Transfusion Reactions: Postoperative Nausea & Vomiting (PONV) Additional Past Anesthesia/Blood Transfusion Reaction / Comment(s): PONV x1 Past Psychological History: Depression Smoking Status: Never smoker Past Alcohol Use History: None Reported Past Drug Use History: None Reported - Past Family History Mother Family Medical History: Cancer, CVA/TIA, Deep Vein Thrombosis (DVT) Additional Family Medical History / Comment(s): lobular lt breast CA General Exam Limitations: no limitations General appearance: alert, in distress Head exam: Present: atraumatic, normocephalic, normal inspection Respiratory exam: Present: normal lung sounds bilaterally. Absent: respiratory distress, wheezes, rales, rhonchi, stridor Cardiovascular Exam: Present: regular rate, normal rhythm, normal heart sounds. Absent: systolic murmur, diastolic murmur, rubs, gallop, clicks Neurological exam: Present: alert, oriented X3, CN II-XII intact Psychiatric exam: Present: normal affect, normal mood Skin exam: Present: warm, dry, intact, normal color. Absent: rash Course Vital Signs 07/10/22 07/10/22 13:24 15:42 Temperature 98.5 F Pulse Rate 74 83 Respiratory 20 18 Rate Blood Pressure 113/77 123/81 O2 Sat by Pulse 100 Oximetry Medical Decision Making - Medical Decision Making This is a 36-year-old female who presents to the emergency department for dysuria and right flank pain. CBC reveals a leukocytosis and urinalysis is positive for a urinary tract infection. Computed tomography scan of the abdomen and pelvis was obtained. This reveals moderate right-sided hydroureteronephrosis without evidence of obstructing calculus. It was noted that the ureter is compressed upon by the uterus as it enters the pelvis. I spoke with Dr. Russo, urology, who advised that the patient follow up with her [facility] regarding the uterus and that a ureteral stent or other intervention on their part is not indicated. This was discussed with the patient and she will follow-up with Dr. Thornton, her WE[facility] WEAVER from several years ago. Prescription for cefpodoxime provided along with ibuprofen and Zofran. She was given a short course of [place] to help with the pain associated with hydronephrosis. She is instructed to use this sparingly when her pain is the most severe. Return precautions reviewed in depth, the patient is instructed to return to the emergency department with any new, worsening, or concerning symptoms. Patient verbalized understanding. This case was discussed in detail with the attending ED physician. Presentation, findings, and treatment plan discussed in detail as well. - Lab Data Result diagrams: 07/10/22 14:13 07/10/22 14:13 Lab Results 07/10/22 07/10/22 07/10/22 Range/Units 13:47 13:47 14:13 WBC 15.7 H (3.8-10.6) k/uL RBC 4.67 (3.80-5.40) m/uL Hgb 12.9 (11.4-16.0) gm/dL Hct 40.7 (34.0-46.0) % MCV 87.2 (80.0-100.0) fL MCH 27.7 (25.0-35.0) pg MCHC 31.8 (31.0-37.0) g/dL RDW 13.5 (11.5-15.5) % Plt Count 304 (150-450) k/uL MPV 7.3 Neutrophils % 85 % Lymphocytes % 8 % Monocytes % 5 % Eosinophils % 1 % Basophils % 0 % Neutrophils # 13.4 H (1.3-7.7) k/uL Lymphocytes # 1.3 (1.0-4.8) k/uL Monocytes # 0.8 (0-1.0) k/uL Eosinophils # 0.1 (0-0.7) k/uL Basophils # 0.1 (0-0.2) k/uL Sodium (137-145) mmol/L Potassium (3.5-5.1) mmol/L Chloride (98-107) mmol/L Carbon Dioxide (22-30) mmol/L Anion Gap mmol/L BUN (7-17) mg/dL Creatinine (0.52-1.04) mg/dL Est GFR (CKD-EPI)AfAm (>60 ml/min/1.73 sqM) Est GFR (CKD-EPI)NonAf (>60 ml/min/1.73 sqM) Glucose (74-99) mg/dL Calcium (8.4-10.2) mg/dL Total Bilirubin (0.2-1.3) mg/dL AST (14-36) U/L ALT (4-34) U/L Alkaline Phosphatase (38-126) U/L Total Protein (6.3-8.2) g/dL Albumin (3.5-5.0) g/dL Amylase (30-110) U/L Lipase (23-300) U/L Urine Color Yellow Urine Appearance Turbid H (Clear) Urine pH 6.0 (5.0-8.0) Ur Specific [place] 1.018 (1.001-1.035) Urine Protein 2+ H (Negative) Urine Glucose (UA) Negative (Negative) Urine Ketones Negative (Negative) Urine Blood Moderate H (Negative) Urine Nitrite Positive H (Negative) Urine Bilirubin Negative (Negative) Urine Urobilinogen <2.0 (<2.0) mg/dL Ur Leukocyte Esterase Large H (Negative) Urine RBC 81 H (0-5) /hpf Urine WBC >182 H (0-5) /hpf Urine WBC Clumps Many H (None) /hpf Ur Squamous Epith Cells 11 H (0-4) /hpf Urine Bacteria Moderate H (None) /hpf Urine Mucus Occasional H (None) /hpf Urine Yeast (Budding) Many H (None) /hpf Urine HCG, Qual Not Detected (Not Detectd) 07/10/22 Range/Units 14:13 WBC (3.8-10.6) k/uL RBC (3.80-5.40) m/uL Hgb (11.4-16.0) gm/dL Hct (34.0-46.0) % MCV (80.0-100.0) fL MCH (25.0-35.0) pg MCHC (31.0-37.0) g/dL RDW (11.5-15.5) % Plt Count (150-450) k/uL MPV Neutrophils % % Lymphocytes % % Monocytes % % Eosinophils % % Basophils % % Neutrophils # (1.3-7.7) k/uL Lymphocytes # (1.0-4.8) k/uL Monocytes # (0-1.0) k/uL Eosinophils # (0-0.7) k/uL Basophils # (0-0.2) k/uL Sodium 139 (137-145) mmol/L Potassium 3.9 (3.5-5.1) mmol/L Chloride 103 (98-107) mmol/L Carbon Dioxide 26 (22-30) mmol/L Anion Gap 10 mmol/L BUN 14 (7-17) mg/dL Creatinine 1.01 (0.52-1.04) mg/dL Est GFR (CKD-EPI)AfAm 84 (>60 ml/min/1.73 sqM) Est GFR (CKD-EPI)NonAf 72 (>60 ml/min/1.73 sqM) Glucose 99 (74-99) mg/dL Calcium 9.2 (8.4-10.2) mg/dL Total Bilirubin 0.7 (0.2-1.3) mg/dL AST 22 (14-36) U/L ALT 13 (4-34) U/L Alkaline Phosphatase 75 (38-126) U/L Total Protein 7.3 (6.3-8.2) g/dL Albumin 4.4 (3.5-5.0) g/dL Amylase 59 (30-110) U/L Lipase 64 (23-300) U/L Urine Color Urine Appearance (Clear) Urine pH (5.0-8.0) Ur Specific [place] (1.001-1.035) Urine Protein (Negative) Urine Glucose (UA) (Negative) Urine Ketones (Negative) Urine Blood (Negative) Urine Nitrite (Negative) Urine Bilirubin (Negative) Urine Urobilinogen (<2.0) mg/dL Ur Leukocyte Esterase (Negative) Urine RBC (0-5) /hpf Urine WBC (0-5) /hpf Urine WBC Clumps (None) /hpf Ur Squamous Epith Cells (0-4) /hpf Urine Bacteria (None) /hpf Urine Mucus (None) /hpf Urine Yeast (Budding) (None) /hpf Urine HCG, Qual (Not Detectd) - Radiology Data Radiology results: report reviewed, image reviewed Disposition Clinical Impression: Urinary tract infection, Hydronephrosis, right Disposition: HOME SELF-CARE Instructions (If sedation given, give patient instructions): Urinary Tract Infection in Women (ED), Hydronephrosis (ED) Additional Instructions: Return to the emergency department with any new, worsening, or concerning symptoms. Take the antibiotic as prescribed for 10 days. The Zofran can be taken up to every 8 hours as needed for nausea and vomiting. Alternate with Ibuprofen and Tylenol as needed for pain and take the [place] sparingly when your pain is the most severe. Follow up with Dr. Thornton regarding your uterus compressing your ureter. Prescriptions: Ibuprofen 800 mg PO Q8H PRN #30 tab PRN Reason: Pain HYDROcodone/APAP 5-325MG [[place] 5-325] 1 tab PO Q6HR PRN 3 Days #12 tab PRN Reason: Pain Cefpodoxime Proxetil [Vantin] 200 mg PO Q12HR 10 Days #20 tab Ondansetron Odt [Zofran Odt] 4 mg PO Q8HR PRN #20 tab PRN Reason: Nausea And Vomiting Is patient prescribed a controlled substance at d/c from ED?: Yes If prescribed controlled substance>3 days was MAPS reviewed?: Prescribed <3 Days Referrals: Davon Sullivan Jr, DO [Primary Care Provider] - 1-2 days Milady Thornton DO [Doctor of Osteopathic Medicine] - 1-2 days
--- NOTE | 2022-07-10 15:09 | CT ---
EXAMINATION TYPE: CT abdomen pelvis wo con CT DLP: 649.6 mGycm, Automated exposure control for dose reduction was used. DATE OF EXAM: 07/10/2022 2:51 PM COMPARISON: CT abdomen pelvis most recent from CLINICAL INDICATION:Female, 36 years old with history of Right flank pain; TECHNIQUE: Axial CT of the abdomen and pelvis. Sagittal and coronal reformats were created on a [employer] workstation. Contrast used: None Oral contrast used: without Oral Contrast FINDINGS: LOWER CHEST: Unremarkable ABDOMEN LIVER: Unremarkable GALLBLADDER AND BILE DUCTS: The gallbladder is surgically absent. PANCREAS: Unremarkable. SPLEEN: Unremarkable. ADRENAL GLANDS: Unremarkable. KIDNEYS AND URETERS: There is moderate right hydroureteronephrosis. No evidence of obstructing calcul us. The ureter is compressed upon by the uterus as it enters the pelvis. No evidence of renal calculu s. No evidence of left-sided hydronephrosis. PELVIS BLADDER: Unremarkable REPRODUCTIVE: Unremarkable. ABDOMEN & PELVIS STOMACH AND BOWEL: No evidence of bowel obstruction. The appendix is not definitively visualized. PERITONEUM: No evidence of pneumoperitoneum or free fluid. VASCULATURE: No evidence of aortic aneurysm. MUSCULOSKELETAL: No acute osseous abnormalities, grade 1 anterolisthesis of L5 on S1 with bilateral s pondylolysis. LYMPH NODES: No gross evidence for lymphadenopathy. SOFT TISSUE/ABDOMINAL WALL: Unremarkable IMPRESSION: Moderate right hydroureteronephrosis without evidence of obstructing calculus. There is some mass eff ect upon the distal ureter as it passes the uterus. No evidence of renal calculi.
[2022-07-10 15:43] VITALS: BP 123/81; PULSE 83; RESP 18
== END 2022-07-10 16:57 | disposition home or self-care (01) ==
LOC: EC 13:04
DX: N39.0 Urinary tract infection, site not specified (principal); N13.2 Hydronephrosis with renal and ureteral calculous obstruction; D72.829 Elevated white blood cell count, unspecified; H91.90 Unspecified hearing loss, unspecified ear; Z91.018 Allergy to other foods; Z91.040 Latex allergy status; Z91.010 Allergy to peanuts
CPT/HCPCS: 36415; 80053; 82150; 83690; 85025; 81001; 81025; 87086; 74176; 99284; 96374; 96375; 96361; J2405; J0696; J2270; J1885

== ENCOUNTER → 2022-07-23 | Outpatient (CLI) | payer MEDICAID ==
--- NOTE | 2022-07-23 16:42 | US ---
EXAMINATION TYPE: US pelvic complete DATE OF EXAM: 07/23/2022 COMPARISON: CT 07/10/2022 CLINICAL HISTORY: Abnormal findings on recent CT. TECHNIQUE: Transabdominal sonographic images of the pelvis were acquired. EXAM MEASUREMENTS: Uterus: 13.3 x 3.7 x 5.3 cm Endometrial Stripe: 0.5 cm Right Ovary: 3.4 x 1.5 x 1.2 cm Left Ovary: 2.9 x 2.5 x 2.1 cm 1. Uterus: Anteverted wnl 2. Endometrium: wnl 3. Right Ovary: wnl 4. Left Ovary: wnl 5. Bilateral Adnexa: wnl 6. Posterior cul-de-sac: wnl IMPRESSION: 1. No evidence of acute process. 2. Endometrium within normal limits for thickness.
== END | disposition home or self-care (01) ==
LOC: RADUSWWP 15:59
PROVIDERS: ATTEND Obstetrics & Gynecology
DX: R10.2 Pelvic and perineal pain (principal); R93.5 Abnormal findings on diagnostic imaging of other abdominal regions, including retroperitoneum
CPT/HCPCS: 76856

== ENCOUNTER → 2022-08-14 | Outpatient (CLI) | payer MEDICAID ==
--- NOTE | 2022-08-14 11:56 | US ---
EXAMINATION TYPE: US kidneys/renal and bladder DATE OF EXAM: 08/14/2022 COMPARISON: CT 07/10/2022 CLINICAL HISTORY: 36-year-old female N13.30 HYDRONEPHROSIS. TECHNIQUE: Multiple sonographic images of the kidneys and bladder are obtained. FINDINGS: EXAM MEASUREMENTS: Right Kidney: 11.5 x 4.7 x 4.8 cm Left Kidney: 10.8 x 3.8 x 4.0 cm Right Kidney: Mild hydronephrosis. Left Kidney: No hydronephrosis or masses seen Bladder: wnl Bilateral Jets seen: Yes IMPRESSION: Mild right-sided hydronephrosis remains. This appears to be persistent but slightly improved compared to the CT of 07/10/2022. The etiology is unclear. Further workup as clinically indicated.
== END | disposition home or self-care (01) ==
LOC: RADUSWWP 07:36
PROVIDERS: ATTEND Obstetrics & Gynecology
DX: N13.30 Unspecified hydronephrosis (principal)
CPT/HCPCS: 76770

== ENCOUNTER → 2022-11-03 | Outpatient (CLI) | payer MEDICAID ==
[2022-11-03 23:11] LABS: Basophils # (A) 0.07 X 10*3/uL (0.00-0.10); Basophils % (A) 0.7 %; Eosinophils # (A) 0.19 X 10*3/uL (0.04-0.35); Eosinophils % (A) 1.8 %; HCT 36.8 % (37.2-46.3); HGB 11.7 g/dL (12.0-15.0); Immature Grans, Automated 0.3 %; Lymphocytes # (A) 2.83 X 10*3/uL (0.90-5.00); Lymphocytes % (A) 26.9 %; MCH 27.3 pg (27.0-32.0); MCHC 31.8 g/dL (32.0-37.0); MCV 85.8 fL (80.0-97.0); Mean Platelet Volume 9.6 fL (9.5-12.2); Monocytes # (A) 0.75 X 10*3/uL (0.20-1.00); Monocytes % (A) 7.1 %; NRBC Per 100 WBC 0 /100 WBCS (0.0-0.0); Neutrophils # (A) 6.66 X 10*3/uL (1.80-7.70); Neutrophils % (A) 63.2 %; Platelet Count 359 X 10*3/uL (140-440); RBC 4.29 X 10*6/uL (4.10-5.20); RDW 14.2 % (11.5-14.5); WBC 10.53 X 10*3/uL (4.50-10.00)
[2022-11-03 23:27] LABS: African American GFR (CKD) 84.5 (60.0-200.0); Anion Gap 9.4 mmol/L (10.00-18.00); BUN/Creat Ratio 10.3 Ratio (12.00-20.00); Blood Urea Nitrogen 10.3 mg/dL (9.0-27.0); Calcium 9.8 mg/dL (8.7-10.3); Carbon Dioxide 24.6 mmol/L (20.0-27.5); Non-African American GFR(CKD) 72.9 (60.0-200.0); Potassium 3.4 mmol/L (3.5-5.5)
== END | disposition home or self-care (01) ==
LOC: LABWHC1 15:20
PROVIDERS: ATTEND Obstetrics & Gynecology
DX: Z01.812 Encounter for preprocedural laboratory examination (principal)
CPT/HCPCS: 80048; 85025

== ENCOUNTER 2022-11-10 05:46 | Day surgery (SDC) | payer MEDICAID ==
[2022-11-05 10:26] VITALS: BMI 34.7
[2022-11-10] MEDS ORDERED: SCOPOLAMINE 1 MG/72 HR PATCH TRANSDERM ONE (06:03)
[2022-11-10] MEDS ORDERED: DEXAMETHASONE SOD PHOSPHATE 4 MG/ML 1 ML VIAL IV ONE (06:03)
[2022-11-10] MEDS ORDERED: LIDOCAINE 1% (10MG/ML) FOR IV START INTRADERMA PRN (06:03)
[2022-11-10] MEDS ORDERED: HYDROmorphone 0.5 MG/0.5 ML SYRINGE IVP PRN (06:03)
[2022-11-10] MEDS ORDERED: ONDANSETRON 4 MG/2 ML VIAL IVP ONE (06:03)
[2022-11-10] MEDS: LACTATED RINGERS 1,000 ML IV SCH (06:10)
[2022-11-10] MEDS ORDERED: fentaNYL (PF) 50 MCG/1 ML VIAL IVP ONE (06:57)
[2022-11-10] MEDS ORDERED: MIDAZOLAM 2 MG/2 ML VIAL IVP ONE (06:57)
--- NOTE | 2022-11-10 07:05 | P.HPOB ---
History of Present Illness H&P Date: 11/10/22 Chief Complaint: dysmenorrhea 36 year old presents for total laparoscopic hysterectomy with da amador. Review of Systems All systems: negative Constitutional: Denies chills, Denies fever Eyes: denies blurred vision, denies pain Ears, nose, mouth and throat: Denies headache, Denies sore throat Cardiovascular: Denies chest pain, Denies shortness of breath Respiratory: Denies cough Gastrointestinal: Denies abdominal pain, Denies diarrhea, Denies nausea, Denies vomiting Genitourinary: Denies dysuria, Denies hematuria Musculoskeletal: Denies myalgias Integumentary: Denies pruritus, Denies rash Neurological: Denies numbness, Denies weakness Psychiatric: Denies anxiety, Denies depression Endocrine: Denies fatigue, Denies weight change Past Medical History Past Medical History: Eye Disorder, Hearing Disorder / Deafness, Musculoskeletal Disorder, Osteoarthritis (OA), Skin Disorder Additional Past Medical History / Comment(s): Permanent ear tubes. Born with bilateral clubfoot. Hx hydronephrosis. Hx scleritis bilateral eyes. Eczema and Psoriasis. History of Any Multi-Drug Resistant Organisms: None Reported Past Surgical History: Appendectomy, Cholecystectomy, Ear Surgery, Orthopedic Surgery Additional Past Surgical History / Comment(s): MULTIPLE BILATERAL FOOT SURGERY FOR CLUB FEET, last on left foot May 2022 - screws removed, numerous bilateral ear surgeries - tubes and repair of holes in eardrum, kidney stent at 15 months of age. Past Anesthesia/Blood Transfusion Reactions: Postoperative Nausea & Vomiting (PONV) Additional Past Anesthesia/Blood Transfusion Reaction / Comment(s): PONV after one surgery ("had too much anesthestic.") Past Psychological History: Depression Smoking Status: Never smoker Past Alcohol Use History: None Reported Past Drug Use History: None Reported - Past Family History Mother Family Medical History: Cancer, CVA/TIA, Deep Vein Thrombosis (DVT) Additional Family Medical History / Comment(s): Lobular left breast camcer. Medications and Allergies Home Medications Medication Instructions Recorded Confirmed Type PARoxetine HCL [Paxil] 20 mg PO QAM 01/05/15 11/10/22 History Ergocalciferol [Vitamin D2 (1250 1,250 mcg PO TH 02/25/21 11/10/22 History Mcg = 86410 Iu)] Pregabalin 75 mg PO BID 11/05/22 11/10/22 History Allergies Allergy/AdvReac Type Severity Reaction Status Date / Time Beef Containing Products Allergy Rash/Hives Verified 11/10/22 06:31 [Beef] latex Allergy Rash/Hives Verified 11/10/22 06:31 peanut Allergy Rash/Hives Verified 11/10/22 06:31 Exam Osteopathic Statement: *. No significant issues noted on an osteopathic structural exam other than those noted in the History and Physical/Consult. Vital Signs Temp Pulse Resp BP Pulse Ox 11/10/22 06:29 97.6 F 84 16 132/77 96 Intake and Output 11/09/22 11/10/22 11/10/22 22:59 06:59 14:59 Other: Weight 88.2 kg Heart: Regular rate and rhythm Lungs: Clear to auscultation bilaterally Abdomen: Soft, nontender Extremities: Negative Homans sign Assessment and Plan (1) Dysmenorrhea Current Visit: Yes Status: Acute Code(s): N94.6 - DYSMENORRHEA, UNSPECIFIED SNOMED Code(s): 705007606 Plan: 1. total laparoscopic hysterectomy with da amador
[2022-11-10] MEDS ORDERED: ROCURONIUM 10 MG/ML (5 ML VIAL) IV ONE (07:10)
[2022-11-10] MEDS ORDERED: fentaNYL (PF) 50 MCG/ML 2 ML AMP ONE (07:10)
[2022-11-10] MEDS ORDERED: SUCCINYLCHOLINE CHLORIDE 200 MG/10 ML VIAL IV ONE (07:10)
[2022-11-10] MEDS ORDERED: LIDOCAINE 2% INJ 20 MG/ML (2 ML VIAL) ONE (07:10)
[2022-11-10] MEDS ORDERED: HYDROmorphone (PF) 1 MG/ML ONE (07:10)
[2022-11-10] MEDS ORDERED: DEXAMETHASONE SOD PHOSPHATE 4 MG/ML 1 ML VIAL ONE (07:10)
[2022-11-10] MEDS ORDERED: MIDAZOLAM 2 MG/2 ML VIAL ONE (07:10)
[2022-11-10] MEDS ORDERED: ROPIVACAINE 5 MG/ML 30 ML VIAL ONE (07:10)
[2022-11-10] MEDS ORDERED: PROPOFOL 10 MG/ML 20 ML VIAL IV ONE (07:10)
[2022-11-10] MEDS ORDERED: GLYCOPYRROLATE 0.2 MG/ML 2 ML VIAL ONE (07:10)
[2022-11-10] MEDS ORDERED: NEOSTIGMINE 1 MG/ML 10 ML VIAL ONE (07:10)
[2022-11-10] MEDS ORDERED: SODIUM CHLORIDE 0.9% (PF) 10 ML VIAL ONE (07:10)
--- NOTE | 2022-11-10 07:45 | P.ANPRN ---
Procedure Note - Anesthesia - Nerve Block Performed Bilateral Erector Spinae Single Time Out Performed: Yes Date of Procedure: 11/10/22 Procedure Start Time: 06:56 Procedure Stop Time: 07:05 Location of Patient: PreOp Indication: Requested by Surgeon Specifically requested for management of pain by DrCatie: Milady Thornton Sedation Type: Sedate with meaningful contact maintained Preparation: Sterile Prep Position: Prone Needle Types: Pajunk Needle Gauge: 21 Ultrasound used to visualize needle placement: Yes Ultrasound used to observe medication spread: Yes Injectate: 0.5% Ropivacaine (see comment for volume) (15 ml +15 ml NS + 2mg Dexamethasone per side) Blood Aspirated: No Pain Paresthesia on Injection Noted: No Resistance on Injection: Normal Image Stored and Saved: Yes Events: Uneventful and Well Tolerated
[2022-11-10] MEDS ORDERED: BUPIVACAINE (PF) 0.25% 30 ML VIAL SQ ONE ×2 (07:47→08:37)
--- NOTE | 2022-11-10 08:46 | P.OP ---
Date of Procedure: 11/10/22 Preoperative Diagnosis: 1. Dysmenorrhea 2. menorrhagia 3. enlarged uterus 4. hydroureter. Postoperative Diagnosis: same Procedure(s) Performed: Total Laparoscopic hysterectomy and bilateral salpingectomy using da Andrea and diagnostic cystoscopy Anesthesia: JON Surgeon: Milady Thornton Keyseating Machine Set Up Operator #1: Sindi Martinez Estimated Blood Loss (ml): 50 IV fluids (ml): 700 Urine output (ml): 100 Pathology: other (uterus, cervix, bilateral fallopian tubes) Condition: stable Disposition: PACU Operative Findings: Normal uterus tubes and ovaries Description of Procedure: Patient taken the operating room where general anesthesia was obtained without difficulty. She is prepped and draped in normal sterile fashion dorsal lithotomy position, legs placed in the Imcah stirrups. Weighted speculum placed in the vagina and the anterior lip the cervix was grasped with single-tooth tenaculum. The uterus sounded to 10 cm and the cervix diameter was 3.5 cm. The appropriate manipulator tip and ring were placed on the Dominga manipulator. The Dominga manipulator was then placed in the uterus. Hyman catheter was also placed. Attention was then turned to the abdomen and gloves were changed. A 5 mm supraumbilical incision was made the scalpel and a 5 mm optical trocar was placed under direct visualization. 10 cm to the right of this and 2 cm down a 5 mm incision was made and 8 mm da Andrea port was placed under direct visualization. Same measurements on the opposite side of the patient's abdomen, the 5 mm incision was made and 8 mm da Andrea port was placed under direct visualization. In the left upper quadrant a 10 mm incision was made and a 10 mm optical trocar was placed under direct visualization. The 5 mm optical trocar was then replaced with the 8 mm da Andrea camera port. The robot was docked on patient's right side. The camera was introduced and then the monopolar curved scissor and [place] bipolar placed under direct visualization. I broke scrub and went to the physician console. The left mesosalpinx was cauterized with the [place] bipolar and cut with monopolar curved scissors to free the fallopian tube. The left round ligament and utero-ovarian ligament were cauterized with the [place] bipolar and cut with monopolar curved scissors. The posterior leaf of the broad ligament was taken down using the monopolar curved scissors. Anterior leaf of the broad ligament was then taken down using the monopolar curved scissors. The uterine artery was cauterized with the [place] bipolar and cut with monopolar curved scissors. The bladder flap was then started using the monopolar curved scissors. Attention was then turned to the right side of the patient's anatomy and the right mesosalpinx was cauterized with the [place] bipolar and cut with monopolar curved scissors. The right round ligament and utero ovarian ligaments were cauterized with the [place] bipolar and cut with monopolar curved scissors. Posterior leaf of the broad ligament was taken down using the monopolar curved scissors and the anterior leaf was taken down using the monopolar curved scissors. The uterine artery was cauterized the [place] bipolar cut with monopolar curved scissors. The bladder flap was then finished on this side. Anterior colpotomy was made using the monopolar curved scissors. The rest of the uterus was from the vaginal cuff by following the ring around with the monopolar curved scissors through the uterosacral ligaments back to the anterior portion. Once the uterus and cervix were amputated they were pulled through the vaginal cuff. Hemostasis was assured. The instruments were changed for the Cardier forcep and the jon suture cut. The vaginal cuff was then closed using O stratafix barbed suture in a running fashion. Hemostasis was again assured and the pelvis was irrigated. All instruments were removed from the abdomen and the robot was undocked. I scrubbed back in to perform a cystoscopy. There were jets from both ureteral orifices. The abdominal incisions were closed with 4-0 Vicryl in a subcuticular fashion. Patient tolerated the procedure well, sponge and instrument counts correct 2 and she was taken to recovery room in stable condition condition
[2022-11-10] MEDS ORDERED: LACTATED RINGERS 1,000 ML IV ONE ×2 (08:58)
[2022-11-10] MEDS ORDERED: KETOROLAC 15 MG/ML 1 ML VIAL IVP ONE (09:48)
[2022-11-10] MEDS ORDERED: SIMETHICONE 80 MG CHEWABLE PO PRN (10:05)
[2022-11-10] MEDS ORDERED: IBUPROFEN 600 MG TAB PO PRN (10:05)
[2022-11-10] MEDS ORDERED: KETOROLAC 15 MG/ML 1 ML VIAL IVP PRN (10:05)
[2022-11-10] MEDS ORDERED: Acetaminophen-Codeine 300-30mg TAB PO PRN ×2 (10:05)
[2022-11-10] MEDS: SENNOSIDES-DOCUSATE SODIUM 1 EACH TAB PO SCH ×2 (14:32→21:40)
[2022-11-10 16:14] VITALS: RESP 18
--- NOTE | 2022-11-11 07:36 | P.DS ---
Providers Expected date of discharge: 11/11/22 Attending physician: Milady Thornton Primary care physician: Davon Sullivan - Discharge Diagnosis(es) (1) Dysmenorrhea Current Visit: Yes Status: Resolved (2) S/P robot-assisted surgical procedure Current Visit: Yes Status: Acute Hospital Course: Patient presented for total laparoscopic hysterectomy bilateral salpingectomy using da Andrea and diagnostic cystoscopy. She underwent this procedure without complication. She is passing flatus and tolerating regular diet and ambulating and voiding without difficulty. She denies nausea, vomiting, chest pain, shortness of breath or calf pain. Patient will be discharged home postoperative day #1 in stable condition to follow-up with me in 3 weeks. Plan - Discharge Summary Discharge Rx Participant: Yes New Discharge Prescriptions: New Acetaminophen-Codeine 300-30mg [Tylenol w/codeine #3] 1 - 2 each PO Q6HR PRN #20 tab PRN Reason: Severe Pain (Scale 7 To 10) Ibuprofen [Motrin] 600 mg PO Q6HR PRN #30 tab PRN Reason: Mild Discomfort No Action PARoxetine HCL [Paxil] 20 mg PO QAM Ergocalciferol [Vitamin D2 (1250 Mcg = 92534 Iu)] 1,250 mcg PO TH Pregabalin 75 mg PO BID Discharge Medication List PARoxetine HCL [Paxil] 20 mg PO QAM 01/05/15 [History] Ergocalciferol [Vitamin D2 (1250 Mcg = 82918 Iu)] 1,250 mcg PO TH 02/25/21 [History] Pregabalin 75 mg PO BID 11/05/22 [History] Acetaminophen-Codeine 300-30mg [Tylenol w/codeine #3] 1 - 2 each PO Q6HR PRN #20 tab 11/11/22 [Rx] Ibuprofen [Motrin] 600 mg PO Q6HR PRN #30 tab 11/11/22 [Rx] Follow up Appointment(s)/Referral(s): Milady Thornton DO [Doctor of Osteopathic Medicine] - 3 Weeks Discharge Disposition: HOME SELF-CARE
[2022-11-11 08:02] LABS: Basophils % (A) 0 %; Eosinophils % (A) 0 %; HCT 32.4 % (34.0-46.0); HGB 10.9 gm/dL (11.4-16.0); Lymphocytes # (A) 2.6 k/uL (1.0-4.8); Lymphocytes % (A) 23 %; MCH 28.4 pg (25.0-35.0); MCHC 33.7 g/dL (31.0-37.0); MCV 84.3 fL (80.0-100.0); Mean Platelet Volume 7.4; Monocytes # (A) 0.6 k/uL (0-1.0); Monocytes % (A) 6 %; Neutrophils # (A) 7.7 k/uL (1.3-7.7); Neutrophils % (A) 69 %; Platelet Count 328 k/uL (150-450); RBC 3.84 m/uL (3.80-5.40); RDW 14.3 % (11.5-15.5); WBC 11.2 k/uL (3.8-10.6)
[2022-11-11] MEDS: SENNOSIDES-DOCUSATE SODIUM 1 EACH TAB PO SCH (08:34)
[2022-11-11 08:42] VITALS: BP 119/75; PULSE 67; TEMP 98.1
[2022-11-11] MEDS ORDERED: ACETAMINOPHEN TAB 325 MG TAB PO PRN (08:47)
[2022-11-11] MEDS: LACTATED RINGERS 1,000 ML IV SCH (11:37)
== END 2022-11-11 13:30 | disposition home or self-care (01) ==
LOC: OR 05:46 → 4FBP 08:45 → OR 11-11 13:30
PROVIDERS: ATTEND Obstetrics & Gynecology
DX: D25.1 Intramural leiomyoma of uterus (principal); N85.2 Hypertrophy of uterus; N13.4 Hydroureter; M19.90 Unspecified osteoarthritis, unspecified site; H57.9 Unspecified disorder of eye and adnexa; H91.90 Unspecified hearing loss, unspecified ear; L40.9 Psoriasis, unspecified; Z96.22 Myringotomy tube(s) status; Z87.448 Personal history of other diseases of urinary system; Z90.49 Acquired absence of other specified parts of digestive tract; Z98.890 Other specified postprocedural states; F32.A Depression, unspecified; Z83.2 Family history of diseases of the blood and blood-forming organs and certain disorders involving the immune mechanism; Z82.0 Family history of epilepsy and other diseases of the nervous system; Z80.3 Family history of malignant neoplasm of breast; Z79.899 Other long term (current) drug therapy; Z79.891 Long term (current) use of opiate analgesic; Z79.811 Long term (current) use of aromatase inhibitors; Z91.010 Allergy to peanuts; Z91.040 Latex allergy status; Z91.018 Allergy to other foods
CPT/HCPCS: 58552; 81025; 64461; 86900; 86901; 85025; 86850; J2250; J1100; J0690; J2405; J1885; J3010; 88307